=== PATIENT | male | born 1950 | race Caucasian/White ===

== ENCOUNTER 2018-04-10 14:53 | Inpatient (IN) ==
[2018-04-10 16:15] LABS: Hematocrit 38.4 % (42.0-52.0); Hemoglobin 12.9 gm/dL (13.5-18.0); Mean Cell Volume 92.3 fl (78-100); Mean Corpuscular Hgb Conc 33.6 g/dl (32-36); Mean Platelet Volume 9.4 fl (8-11.3); Neutrophil # 10.1 K/mm3 (1.3-6.0); Neutrophil % 72.4 % (42-75.0); Platelet Count 372 K/mm3 (150-450); Red Blood Count 4.16 M/mm3 (4.7-6.0); Red Cell Distribution Width 14.8 % (11.5-14.0); White Blood Count 13.9 K/mm3 (4.0-10.5)
[2018-04-10 16:55] LABS: ALT 15 U/L (19-67); AST 23 U/L (0-48); Alkaline Phosphatase * 116 U/L (50-170); Anion Gap 12.9 mmol/L (6.8-13.8); BUN/Creatinine Ratio 14.6 (9.0-21.6); Bilirubin, Total 0.6 mg/dL (0.0-1.1); Blood Urea Nitrogen 14 mg/dL (6-23); Ca. Corrected For Albumin 9.7 mg/dL (8.4-10.2); Calcium * 9.2 mg/dL (7.9-10.9); Carbon Dioxide 31.6 mmol/L (24-32.6); Chloride 98 mmol/L (97-106); Glucose * 108 mg/dL (70-110); Potassium 3.5 mmol/L (3.4-4.6); Sodium 139 mmol/L (132-142); Total Protein 7.4 gm/dL (6.2-8.2)
[2018-04-10] MEDS ORDERED: PIPERACILLIN SODIUM/TAZOBACTAM 3.375 GM in DEXTROSE 5 % IN WATER 100 ML IV ONE ×2 (17:25)
[2018-04-10] MEDS ORDERED: NORMAL SALINE 1,000 ML IV ONE (17:25)
[2018-04-10] MEDS ORDERED: VANCOMYCIN HCL 1 GM in DEXTROSE 5 % IN WATER 250 ML IV ONE ×2 (17:32)
--- NOTE | 2018-04-10 17:40 | ERNOTE ---
Integumentary HPI - Narrative Date of Service: 04/10/18 - General Time Seen by Provider: 04/10/18 15:56 Source: patient Exam Limitations: no limitations - Immun/Allergies/Home Medications Immunizations: IMMUNIZATION HX Immunizations Up to Date Yes History of Influenza Vaccine Yes Allergies/Adverse Reactions: Allergies Allergy/AdvReac Type Severity Reaction Status Date / Time codeine Allergy Intermediate Verified 04/10/18 15:52 Home Medications: HOME MEDICATIONS Allopurinol [Zyloprim] 300 mg PO DAILY 04/08/18 [Last Taken Unknown] Amitriptyline HCl [Elavil] 50 mg PO QPM 04/08/18 [Last Taken Unknown] Escitalopram Oxalate [Lexapro] 10 mg PO DAILY 04/08/18 [Last Taken Unknown] Ferrous Gluconate 325 mg PO QAM 04/08/18 [Last Taken Unknown] Furosemide [Lasix] 80 mg PO QAM 04/08/18 [Last Taken Unknown] Gabapentin 300 mg PO TID 04/08/18 [Last Taken Unknown] HYDROcodone/ACETAMINOPHEN [Hydrocodon-Acetaminophen 5-325] 1 ea PO TID 04/08/18 [Last Taken Unknown] Methocarbamol [Robaxin] 1.5 mg PO QPM 04/08/18 [Last Taken Unknown] Metoprolol Tartrate [Lopressor] 50 mg PO QAM 04/08/18 [Last Taken Unknown] Potassium Chloride [K-Tab ER] 10 meq PO QAM 04/08/18 [Last Taken Unknown] Pramipexole Di-HCl [Pramipexole Dihydrochloride] 0.5 mg PO QAM 04/08/18 [Last Taken Unknown] Pramipexole Di-HCl [Pramipexole ER] 1.5 mg PO QAM 04/08/18 [Last Taken Unknown] Pregabalin [Lyrica] 150 mg PO TID 04/08/18 [Last Taken Unknown] Rivaroxaban [Xarelto] 20 mg PO QPM 04/08/18 [Last Taken Unknown] Simvastatin 40 mg PO QPM 04/08/18 [Last Taken Unknown] rOPINIRole HCL [Requip] 4 mg PO QPM 04/08/18 [Last Taken Unknown] - Pain Pain Score: 6 - History of Present Illness Narrative: The patient is a 68 year old male who presents for left foot and leg redness which has been present for 2 days. There are associated symptoms of left volar foot ulcer. The patient reports pain to left foot and lower extremity, 6/10. There are no alleviating factors. There are no aggravating factors. Previous treatments have included: currently taking Keflex without improvement. The past medical history includes: HTN, AFib, non-Hodgkins Lymphoma and peripheral vascular disease. The social history is negative. The patient has had no ill contacts. Patient states he developed a "blister" lesion to left volar foot on , patient states area opened and began draining bloody brown discharge on Saturday. Patient states he saw on Saturday and began Keflex. Patient states yesterday he develop redness to left dorsal foot with progression to left lower extremity today. Patient states on Saturday he also developed having fever. Review of Systems - Review of Systems Constitutional: Present: fever, fatigue EYE: Present: no symptoms reported ENT: Present: no symptoms reported. Absent: ear pain, nasal drainage, sore throat Respiratory: Present: no symptoms reported. Absent: shortness of breath, cough Cardiology: Present: no symptoms reported. Absent: chest pain Gastrointestinal/Abdominal: Present: eating less. Absent: nausea, vomiting, diarrhea Genitourinary: Present: no symptoms reported. Absent: dysuria Musculoskeletal: Present: joint pain Skin: Present: change in color Neurological: Present: no symptoms reported Endocrine: Present: no symptoms reported Hematologic/Lymphatic: Present: no symptoms reported Psych: Present: no symptoms reported All Other Systems: All systems neg except as marked Medical History (Last Reviewed 04/10/18 @ 17:45 by DEEPTI Soliman) Atrial fibrillation History of recent chemotherapy History of smoking Hypercholesteremia Hypertension Non-Hodgkin lymphoma Pacemaker Polyneuropathy Swelling of both lower extremities Tarsal tunnel syndrome, bilateral Surgical History: Surgical History (Last Reviewed 04/10/18 @ 17:45 by DEEPTI Soliman) Amputated toe of right foot Amputation of little toe History of amputation of left great toe History of amputation of lesser toe of left foot History of back surgery History of bilateral carpal tunnel release History of heart bypass surgery Family History: Family History (Last Reviewed 04/10/18 @ 17:45 by DEEPTI Soliman) Father Sepsis Heart disease Mother Lupus Heart disease Other Parents Social History: Preferred Language Frisian Smoking Status Never smoker Alcohol Use none Drug Use none No Social History Section defined Physical Exam - Physical Exam General Appearance: Present: wd/wn, alert, no apparent distress Head Exam: Present: normal inspection Eye Exam: Normal inspection: bilateral Neck: Present: normal inspection Respiratory: Present: no respiratory distress, normal breath sounds, no accessory muscle use, lungs clear Cardiovascular/Chest: Present: regular rate, rhythm, systolic murmur Peripheral Pulses: N=norm/S=strong/W=weak/B=bound/A=absent: Dorsalis-pedis (L): Normal Extremity Exam: Present: pedal edema, extremity edema - 1+ pitting to left lower extremity, other - erythema to dorsal left foot with circumferential erythema to left lower extremity, 2cm x 1cm ulceration left volar foot Neurological Exam: Present: alert, oriented, normal mood/affect Skin Exam: Present: normal color, warm/dry Progress - Date and Time Seen: Date and Time: 04/10/18 17:27 Discussed care and treatment plan with , will consult. 04/10/18 17:40 Discussed case with , will initiate Vanco and Zosyn. Blood cultures pending. Will admit for cellulitis, failed outpt treatment and left foot ulceration. - Results and Orders Patient's Lab Results:: I have reviewed the patient's lab results. - Vital Signs Patient's Vital Signs:: I have reviewed the patient's vital signs. Vital Signs: Vital Signs 04/10/18 15:49 Temperature 36.4 C Pulse Rate 82 Respiratory Rate 17 Blood Pressure 119/72 O2 Sat by Pulse Oximetry 99 - X-Ray X-Ray #1 X-Ray: foot Interpretation: Reviewed by me X-ray Comments: Previous amputation of toes, no acute osseous abnormality. Small amount of cutaneous air related to overlying ulcer. Reviewed with . - Progress/Reassessment Chief Complaint: Cellulitis Departure Clinical Impression: Failure of outpatient treatment Cellulitis Qualifiers: Site of cellulitis: extremity Site of cellulitis of extremity: lower extremity Laterality: left Qualified Code(s): L03.116 - Cellulitis of left lower limb Foot ulcer, left Qualifiers: Non-pressure ulcer stage: unspecified non-pressure ulcer stage Qualified Code(s): L97.529 - Non-pressure chronic ulcer of other part of left foot with unspecified severity - Departure Disposition: Still a patient Condition: Fair
--- NOTE | 2018-04-10 21:02 | HP ---
Chief Complaint - Chief Complaint Date of Service: 04/10/18 Time of Service: 21:01 Chief Complaint: ulcer, cellulitis of left forefoot History of Present Illness: 68-year-old male presented to the ER this evening with worsening infection of his left forefoot. Patient has history of peripheral vascular disease leading to amputation of his 5 digits on his left foot prior to this infection. Patient noticed may be a week to 10 days ago that there was a blister/wound lesion on his plantar aspect of his left forefoot. He tried treating it himself but after a few days with no improvement and worsening drainage decided to go to the wound clinic here at [address] [place] [address]. He was being seen by Dr. Duque for this issue who saw him 2 days ago. She explored the ulcer with debridement and send the patient home on Keflex. Today return to the hospital with worsening cellulitis of his left forefoot that initially it started at the plantar aspect around his wound but has now tracked up to just above the ankle circumferentially was left lower extremity. He states that he was having fevers at home but has had none here up to date. He states that the drainage worsened over the last 2 days and the pain also increased. His left lower extremity is significantly more swollen than his right. Peripheral pulses are palpable but weak with delayed cap refill in both feet. X-rays obtained of his left lower extremity were fairly unimpressive, no obvious signs of periosteal reaction seen but due to such a high ESR osteomyelitis is definitely a possibility. Waiting for official read to come back on the x-ray. He was started on vancomycin and Zosyn in the ER, blood cultures pending. Patient has a history of A. fib, non-Hodgkin's lymphoma with recent chemotherapy, hypertension, polyneuropathy, history of lead exposure, peripheral vascular disease, and history of 5 digit left foot amputation. Medical History (Last Reviewed 04/10/18 @ 19:48 by Andria Fontanez RN) Atrial fibrillation History of recent chemotherapy History of smoking Hypercholesteremia Hypertension Non-Hodgkin lymphoma Pacemaker Polyneuropathy Swelling of both lower extremities Tarsal tunnel syndrome, bilateral Surgical History: Surgical History (Last Reviewed 04/10/18 @ 19:48 by Andria Fontanez RN) Amputated toe of right foot Amputation of little toe History of amputation of left great toe History of amputation of lesser toe of left foot History of back surgery History of bilateral carpal tunnel release History of heart bypass surgery Family History: Family History (Last Reviewed 04/10/18 @ 19:48 by Andria Fontanez RN) Father Heart disease Sepsis Mother Heart disease Lupus Other Parents Social History: Patient Lives/Resources With Spouse Utilized Occupation Net Programmer Preferred Language Tajik Do you have any orthodox or Yes: [employer] of [place] cultural preference? Smoking Status Former smoker Have you smoked in the past 12 Yes months Do you dip or chew tobacco No Alcohol Use none Drug Use none No Social History Section defined Review Of Systems (GEN) - Review of Systems Generalized/Overall Review: Present: Fever. Absent: Chills, Fatigue EENTM: Present: No Symptoms Reported Respiratory: Present: No Symptoms Reported Cardiac: Absent: Chest Pain, Edema, Palpitations Abdominal: Absent: Nausea, Vomiting Genitourinary: Present: No Symptoms Reported Musculoskeletal: Present: Muscle Pain, Other - Left foot pain with wound and drainage Skin: Present: Rash - Redness warmth circumferentially to just above the ankle left lower extremity, Change in Color, Change in hair/nails - Minimal hair on forefeet Immunizations: IMMUNIZATION HX Immunizations Up to Date Yes History of Influenza Vaccine Yes Allergies/Adverse Reactions: Allergies Allergy/AdvReac Type Severity Reaction Status Date / Time codeine Allergy Intermediate Verified 04/10/18 15:52 Home Medications: HOME MEDICATIONS Allopurinol [Zyloprim] 300 mg PO DAILY 04/08/18 [Last Taken Unknown] Amitriptyline HCl [Elavil] 50 mg PO QPM 04/08/18 [Last Taken Unknown] Escitalopram Oxalate [Lexapro] 10 mg PO DAILY 04/08/18 [Last Taken Unknown] Ferrous Gluconate 325 mg PO QAM 04/08/18 [Last Taken Unknown] Furosemide [Lasix] 80 mg PO QAM 04/08/18 [Last Taken Unknown] Gabapentin 300 mg PO TID 04/08/18 [Last Taken Unknown] HYDROcodone/ACETAMINOPHEN [Hydrocodon-Acetaminophen 5-325] 1 ea PO TID 04/08/18 [Last Taken Unknown] Methocarbamol [Robaxin] 1.5 mg PO QPM 04/08/18 [Last Taken Unknown] Metoprolol Tartrate [Lopressor] 50 mg PO QAM 04/08/18 [Last Taken Unknown] Potassium Chloride [K-Tab ER] 10 meq PO QAM 04/08/18 [Last Taken Unknown] Pramipexole Di-HCl [Pramipexole Dihydrochloride] 0.5 mg PO QAM 04/08/18 [Last Taken Unknown] Pramipexole Di-HCl [Pramipexole ER] 1.5 mg PO QAM 04/08/18 [Last Taken Unknown] Pregabalin [Lyrica] 150 mg PO TID 04/08/18 [Last Taken Unknown] Rivaroxaban [Xarelto] 20 mg PO QPM 04/08/18 [Last Taken Unknown] Simvastatin 40 mg PO QPM 04/08/18 [Last Taken Unknown] rOPINIRole HCL [Requip] 4 mg PO QPM 04/08/18 [Last Taken Unknown] Exam - Exam Vital Signs: Vital Signs - Last Taken Temp 37.6 C 04/10/18 18:54 Pulse 79 04/10/18 18:54 Resp 18 04/10/18 18:54 BP 118/67 04/10/18 18:54 Pulse Ox 98 04/10/18 18:54 Constitutional: Present: Alert, Oriented x3, Cooperative Neck: Present: non-tender, full range of motion Respiratory: Present: chest non-tender, lungs clear, normal breath sounds Cardiovascular/Chest: Present: regular rate, rhythm, no murmur Peripheral Pulses: dorsalis-pedis (R): 1+, dorsalis-pedis (L): 1+ Abdomen: Present: Normal bowel sounds, soft, nontender /Rectal: Present: Exam deferred Extremity: Present: lower extremity edema - Left lower extremity mid wagner, leg pain - Left lower extremity, slow capillary refill - Bilateral lower extremities Skin Exam: Present: skin rash - Erythematous, cellulitic rash left lower extremity. Roughly 2 x 2 ulcer under the third metatarsal left forefoot draining purulent material- currently dressed Appearance: Present: appropriate appearance, appropriate insight Eye contact: Present: cooperative, good eye contact Diagnostic Studies: Abnormal Lab Results 04/10/18 04/10/18 04/10/18 Range/Units 16:05 16:05 16:05 WBC 13.9 H (4.0-10.5) K/mm3 RBC 4.16 L (4.7-6.0) M/mm3 Hgb 12.9 L (13.5-18.0) gm/dL Hct 38.4 L (42.0-52.0) % RDW 14.8 H (11.5-14.0) % Immature Gran % (Auto) 0.60 H (0.001-0.429) % Immature Gran # (Auto) 0.09 H (0.000-0.0310) K/mm3 Lymphocytes % 16.1 L (20-51) % Monocytes % 9.1 H (0.0-9) % Neutrophils # 10.1 H (1.3-6.0) K/mm3 Monocytes # 1.3 H (0.0-1.0) k/mm3 ESR (0-10) mm/hr Lactic Acid, Venous 3.0 H* (0.4-2.0) mmol/L ALT 15 L (19-67) U/L Albumin 3.0 L (3.4-5.0) gm/dl 04/10/18 Range/Units 16:05 WBC (4.0-10.5) K/mm3 RBC (4.7-6.0) M/mm3 Hgb (13.5-18.0) gm/dL Hct (42.0-52.0) % RDW (11.5-14.0) % Immature Gran % (Auto) (0.001-0.429) % Immature Gran # (Auto) (0.000-0.0310) K/mm3 Lymphocytes % (20-51) % Monocytes % (0.0-9) % Neutrophils # (1.3-6.0) K/mm3 Monocytes # (0.0-1.0) k/mm3 ESR 110 H (0-10) mm/hr Lactic Acid, Venous (0.4-2.0) mmol/L ALT (19-67) U/L Albumin (3.4-5.0) gm/dl Laboratory Results WBC 13.9 K/mm3 (4.0-10.5) H 04/10/18 16:05 RBC 4.16 M/mm3 (4.7-6.0) L 04/10/18 16:05 Hgb 12.9 gm/dL (13.5-18.0) L 04/10/18 16:05 Hct 38.4 % (42.0-52.0) L 04/10/18 16:05 MCV 92.3 fl (78-100) 04/10/18 16:05 MCH 31.0 pg (27-31) 04/10/18 16:05 MCHC 33.6 g/dl (32-36) 04/10/18 16:05 RDW 14.8 % (11.5-14.0) H 04/10/18 16:05 Plt Count 372 K/mm3 (150-450) 04/10/18 16:05 MPV 9.4 fl (8-11.3) 04/10/18 16:05 Immature Gran % (Auto) 0.60 % (0.001-0.429) H 04/10/18 16:05 Immature Gran # (Auto) 0.09 K/mm3 (0.000-0.0310) H 04/10/18 16:05 Neutrophils % 72.4 % (42-75.0) 04/10/18 16:05 Lymphocytes % 16.1 % (20-51) L 04/10/18 16:05 Monocytes % 9.1 % (0.0-9) H 04/10/18 16:05 Eosinophils % 1.4 % (0.0-3.0) 04/10/18 16:05 Basophils % 0.4 % (0.0-1.0) 04/10/18 16:05 Nucleated RBC % 0.0 k/mm3 (0-1) 04/10/18 16:05 Neutrophils # 10.1 K/mm3 (1.3-6.0) H 04/10/18 16:05 Lymphocytes # 2.25 k/mm3 (1.5-3.5) 04/10/18 16:05 Monocytes # 1.3 k/mm3 (0.0-1.0) H 04/10/18 16:05 Eosinophils # 0.2 k/mm3 (0.0-0.7) 04/10/18 16:05 Absolute Basophils 0.1 k/mm3 (0.0-0.1) 04/10/18 16:05 ESR 110 mm/hr (0-10) H 04/10/18 16:05 Sodium 139 mmol/L (132-142) 04/10/18 16:05 Plasma Sodium 139 mmol/L (130-142) 04/10/18 16:05 Potassium 3.5 mmol/L (3.4-4.6) 04/10/18 16:05 Chloride 98 mmol/L (97-106) 04/10/18 16:05 Carbon Dioxide 31.6 mmol/L (24-32.6) 04/10/18 16:05 Anion Gap 12.9 mmol/L (6.8-13.8) 04/10/18 16:05 BUN 14 mg/dL (6-23) 04/10/18 16:05 Creatinine 0.96 mg/dL (0.4-1.4) 04/10/18 16:05 Est GFR (Non-Af Amer) 83 mL/min (60-130) 04/10/18 16:05 BUN/Creatinine Ratio 14.6 (9.0-21.6) 04/10/18 16:05 Random Glucose 108 mg/dL (70-110) 04/10/18 16:05 Lactic Acid, Venous 1.5 mmol/L (0.4-2.0) 04/10/18 19:36 Calcium 9.2 mg/dL (7.9-10.9) 04/10/18 16:05 Calcium Adj for Albumin 9.7 mg/dL (8.4-10.2) 04/10/18 16:05 Total Bilirubin 0.6 mg/dL (0.0-1.1) 04/10/18 16:05 AST 23 U/L (0-48) 04/10/18 16:05 ALT 15 U/L (19-67) L 04/10/18 16:05 Alkaline Phosphatase 116 U/L (50-170) 04/10/18 16:05 C-Reactive Prot, Quant Less than 0.2 mg/dL (0.0-0.9) 04/10/18 16:05 Total Protein 7.4 gm/dL (6.2-8.2) 04/10/18 16:05 Albumin 3.0 gm/dl (3.4-5.0) L 04/10/18 16:05 Assessment/Plan - Narrative Narrative: Patient admitted under inpatient due to failed outpatient oral antibiotics as well as worsening cellulitic infection. Concern for osteomyelitis due to elevated ESR and rapidly spreading infection with access to periosteum underneath the ulceration. Patient started on vancomycin and Zosyn. Vank trough ordered to be drawn 1 hour prior to the fourth dose. Will repeat CBC in a.m. Dr. Duque has been consulted, patient will be made n.p.o. after midnight in case Dr. Duque wants to perform any surgical procedures. Blood cultures pending. MRSA screening pending. Normal saline given at 125/h. Chronic medications reconciled and ordered. We will monitor vitals. - Assessment/Plan (1) Cellulitis Problem: Acute Qualifiers: Site of cellulitis: extremity Site of cellulitis of extremity: lower extremity Laterality: left Qualified Code(s): L03.116 - Cellulitis of left lower limb (2) Foot ulcer, left Problem: Acute Qualifiers: Non-pressure ulcer stage: unspecified non-pressure ulcer stage Qualified Code(s): L97.529 - Non-pressure chronic ulcer of other part of left foot with unspecified severity (3) Failure of outpatient treatment Problem: Acute (4) Hypertension Problem: Chronic (5) History of non-Hodgkin's lymphoma Problem: Chronic (6) Peripheral vascular disease Problem: Chronic
[2018-04-10] MEDS: SIMVASTATIN 40 MG TABLET PO SCH (21:51)
[2018-04-10] MEDS: rOPINIRole HCL 1 MG TABLET PO SCH (21:52)
[2018-04-10] MEDS: PREGABALIN 75 MG CAPSULE PO SCH (21:52)
[2018-04-10] MEDS: GABAPENTIN 300 MG CAPSULE PO SCH (21:52)
[2018-04-10] MEDS: AMITRIPTYLINE HCL 50 MG TABLET PO SCH (21:53)
[2018-04-10] MEDS: NORMAL SALINE 1,000 ML IV SCH (22:34)
[2018-04-11] MEDS: PIPERACILLIN SODIUM/TAZOBACTAM 3.375 GM in DEXTROSE 5 % IN WATER 100 ML IV SCH ×6 (01:31→16:25)
[2018-04-11] MEDS ORDERED: VANCOMYCIN HCL 1.25 GM in DEXTROSE 5 % IN WATER 250 ML IV SCH ×2 (05:30)
[2018-04-11 06:54] LABS: Hematocrit 32.8 % (42.0-52.0); Hemoglobin 10.8 gm/dL (13.5-18.0); Mean Cell Volume 92.7 fl (78-100); Mean Corpuscular Hemoglobin 30.5 pg (27-31); Mean Corpuscular Hgb Conc 32.9 g/dl (32-36); Mean Platelet Volume 9.4 fl (8-11.3); Neutrophil # 7.8 K/mm3 (1.3-6.0); Neutrophil % 67.4 % (42-75.0); Platelet Count 365 K/mm3 (150-450); Red Blood Count 3.54 M/mm3 (4.7-6.0); Red Cell Distribution Width 14.9 % (11.5-14.0); White Blood Count 11.5 K/mm3 (4.0-10.5)
[2018-04-11] MEDS: VANCOMYCIN HCL 1.25 GM in DEXTROSE 5 % IN WATER 250 ML IV SCH ×4 (07:04→17:40)
[2018-04-11] MEDS: GABAPENTIN 300 MG CAPSULE PO SCH ×3 (08:56→16:25)
[2018-04-11] MEDS: POTASSIUM CHLORIDE 10 MEQ TABLET.SA PO SCH (08:56)
[2018-04-11] MEDS: METOPROLOL TARTRATE 50 MG TABLET PO SCH (08:56)
[2018-04-11] MEDS: ESCITALOPRAM OXALATE 10 MG TAB PO SCH (08:56)
[2018-04-11] MEDS: ALLOPURINOL 300 MG TABLET PO SCH (08:57)
[2018-04-11] MEDS: PRAMIPEXOLE DI-HCL 0.5 MG TABLET PO SCH (08:57)
[2018-04-11] MEDS: PREGABALIN 75 MG CAPSULE PO SCH ×3 (09:06→16:29)
[2018-04-11] MEDS: NORMAL SALINE 1,000 ML IV PRN ×2 (11:01→19:09)
--- NOTE | 2018-04-11 11:14 | PN ---
Subjective - Date and Time Seen Date: 04/11/18 Time: 11:13 Subjective Narrative: Patient did well overnight with no acute complications. He denies fevers, chills, nausea, vomiting. His vital signs were stable overnight. Patient states that his pain is well controlled, states that it has improved since starting antibiotics. Patient states the redness has improved as well, still has some swelling to the foot. Patient states he is hungry. Objective - Review of Systems Generalized/Overall Review: Reports: No Symptoms Reported EENTM: Reports: No Symptoms Reported Respiratory: Denies: Cough, Shortness of Breath Cardiac: Denies: Chest Pain, Edema, Palpitations Abdominal: Denies: Nausea, Vomiting Genitourinary Symptoms: Reports: No Symptoms Reported Musculoskeletal Complaints: Reports: Muscle Pain - Left lower extremity, improving Neurological: Reports: No Symptoms Reported Skin: Reports: Change in Color - Lower extremity cellulitis, improving with antibiotics Endocrine: Reports: No Symptoms Reported - Vitals Vitals: Last Vital Signs Temp 37.2 C 04/11/18 07:00 Pulse 82 04/11/18 08:56 Resp 16 04/11/18 07:00 BP 137/76 04/11/18 08:56 Pulse Ox 96 04/11/18 07:00 - Abnormal Lab Findings Abnormal Lab Findings: Abnormal Lab Results 04/10/18 04/10/18 04/10/18 Range/Units 16:05 16:05 16:05 WBC 13.9 H (4.0-10.5) K/mm3 RBC 4.16 L (4.7-6.0) M/mm3 Hgb 12.9 L (13.5-18.0) gm/dL Hct 38.4 L (42.0-52.0) % RDW 14.8 H (11.5-14.0) % Immature Gran % (Auto) 0.60 H (0.001-0.429) % Immature Gran # (Auto) 0.09 H (0.000-0.0310) K/mm3 Lymphocytes % 16.1 L (20-51) % Monocytes % 9.1 H (0.0-9) % Neutrophils # 10.1 H (1.3-6.0) K/mm3 Monocytes # 1.3 H (0.0-1.0) k/mm3 ESR (0-10) mm/hr Lactic Acid, Venous 3.0 H* (0.4-2.0) mmol/L ALT 15 L (19-67) U/L Albumin 3.0 L (3.4-5.0) gm/dl 04/10/18 04/11/18 Range/Units 16:05 06:47 WBC 11.5 H (4.0-10.5) K/mm3 RBC 3.54 L (4.7-6.0) M/mm3 Hgb 10.8 L (13.5-18.0) gm/dL Hct 32.8 L (42.0-52.0) % RDW 14.9 H (11.5-14.0) % Immature Gran % (Auto) 0.50 H (0.001-0.429) % Immature Gran # (Auto) 0.06 H (0.000-0.0310) K/mm3 Lymphocytes % (20-51) % Monocytes % 9.1 H (0.0-9) % Neutrophils # 7.8 H (1.3-6.0) K/mm3 Monocytes # 1.1 H (0.0-1.0) k/mm3 ESR 110 H (0-10) mm/hr Lactic Acid, Venous (0.4-2.0) mmol/L ALT (19-67) U/L Albumin (3.4-5.0) gm/dl - Exam Constitutional: Present: Alert, Oriented x3, Cooperative, Well developed Neck: Present: non-tender, supple Respiratory: Present: lungs clear, normal breath sounds Cardiovascular/Chest: Present: normal peripheral pulses, irregularly irregular Abdomen: Present: Normal bowel sounds, soft, nontender Extremity: Present: lower extremity edema - Left lower extremity, due to infection, slow capillary refill - Bilateral feet, other Skin Exam: Present: skin rash - Cellulitic infection left lower extremity to just above the ankle, circumferential, warm to touch Neurologic: Present: no motor/sensory deficits Appearance: Present: appropriate appearance, appropriate insight Eye contact: Present: cooperative, good eye contact Thoughts: Present: normal thought pattern, normal mood /affect Assessment/Plan Plan Narrative: Patient admitted under inpatient due to failed outpatient oral antibiotics as well as worsening cellulitic infection. 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 Patient started on vancomycin, will stop Zosyn due to cultures growing out MRSA. Patient to be placed on contact precautions. Vank trough ordered to be drawn 1 hour prior to the fourth dose. Will repeat CBC in a.m. Dr. Duque has been consulted, patient will be made n.p.o. after midnight of the so patient can be taken back with Dr. Duque for resection of all 5 metatarsal heads. Will stop the normal saline IV, allow patient to eat today. Will start patient on Lovenox, to be stopped on the , currently holding Xarelto. Chronic medications reconciled and ordered. We will monitor vitals. - Problems/Diagnosis (1) Osteomyelitis of foot, left, acute Problem: Acute (2) Cellulitis Problem: Acute Qualifiers: Site of cellulitis: extremity Site of cellulitis of extremity: lower extremity Laterality: left Qualified Code(s): L03.116 - Cellulitis of left lower limb (3) Foot ulcer, left Problem: Acute Qualifiers: Non-pressure ulcer stage: unspecified non-pressure ulcer stage Qualified Code(s): L97.529 - Non-pressure chronic ulcer of other part of left foot with unspecified severity (4) Failure of outpatient treatment Problem: Acute (5) Hypertension Problem: Chronic (6) History of non-Hodgkin's lymphoma Problem: Chronic (7) Peripheral vascular disease Problem: Chronic (8) A-fib Problem: Acute
--- NOTE | 2018-04-11 11:23 | CONS ---
- Reason for consultation (1) Cellulitis Date of Service: 04/11/18 (2) Foot ulcer, left Date of Service: 04/11/18 HPI - General Date of Service: 04/11/18 Narrative: Pt evaluated in bedside chair resting. Was admitted last evening with worsening redness, swelling, and pain about his left foot/lower leg, failing outpatient oral ABX treatment. He was first seen by me in the wound center on Saturday this week for evaluation following a 1.5 week duration of an ulceration that developed after a blister had popped on this foot. He had tried treating at home, however noticed he was developing worsening of the ulceration with redness and increased drainage. 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 He had mild erythema about the distal aspect of the foot with some swelling and tenderness into the lower leg. A swab culture was obtained on that visit, xrays taken with no osseous destruction to indicate osteomyelitis, wound was debrided and dressed, and he was placed on oral Keflex with instructions to seek medical attention immediately should his symptoms not improve or worsen. He presented to the ED yesterday evening with worsening symptoms as above and was admitted. I was consulted for surgical evaluation. He is having a bone scan done today. Culture results returned showing MRSA. States he is feeling better today after just a couple doses of IV ABX. Still with some tenderness to the lower leg. Source: patient - History of Present Illness Timing/Duration: getting worse Allergies/Adverse Reactions: Allergies codeine Allergy (Intermediate, Verified 04/10/18 15:52) Home Medications: Home Medications Medication Instructions Recorded Last Taken Allopurinol [Zyloprim] 300 mg PO DAILY 04/08/18 Unknown Amitriptyline HCl [Elavil] 50 mg PO QPM 04/08/18 Unknown Escitalopram Oxalate [Lexapro] 10 mg PO DAILY 04/08/18 Unknown Ferrous Gluconate 325 mg PO QAM 04/08/18 Unknown Furosemide [Lasix] 80 mg PO QAM 04/08/18 Unknown Gabapentin 300 mg PO TID 04/08/18 Unknown HYDROcodone/ACETAMINOPHEN 1 ea PO TID 04/08/18 Unknown [Hydrocodon-Acetaminophen 5-325] Methocarbamol [Robaxin] 1.5 mg PO QPM 04/08/18 Unknown Metoprolol Tartrate [Lopressor] 50 mg PO QAM 04/08/18 Unknown Potassium Chloride [K-Tab ER] 10 meq PO QAM 04/08/18 Unknown Pramipexole Di-HCl [Pramipexole 0.5 mg PO QAM 04/08/18 Unknown Dihydrochloride] Pramipexole Di-HCl [Pramipexole ER] 1.5 mg PO QAM 04/08/18 Unknown Pregabalin [Lyrica] 150 mg PO TID 04/08/18 Unknown Rivaroxaban [Xarelto] 20 mg PO QPM 04/08/18 Unknown Simvastatin 40 mg PO QPM 04/08/18 Unknown rOPINIRole HCL [Requip] 4 mg PO QPM 04/08/18 Unknown Acyclovir [Zovirax] 400 mg PO DAILY 04/11/18 Unknown Folic Acid 0.8 mg PO DAILY 04/11/18 Unknown Ginkgo Biloba 60 mg PO DAILY 04/11/18 Unknown Multivit-Min/Folic/Vit K/Lycop 1 ea PO DAILY 04/11/18 Unknown [Men's Multivitamin Tablet] Medications - Medications Current Medications: Current Medications Allopurinol (Zyloprim) 300 mg PO DAILY [facility] Stop: 05/11/18 09:01 Last Admin: 04/11/18 08:57 Dose: 300 mg Documented by: Amitriptyline HCl (Elavil) 50 mg PO QPM@2100 [facility] Stop: 05/10/18 21:01 Last Admin: 04/10/18 21:53 Dose: Not Given Documented by: Escitalopram Oxalate (Lexapro) 10 mg PO DAILY [facility] Stop: 05/11/18 09:01 Last Admin: 04/11/18 08:56 Dose: 10 mg Documented by: Gabapentin (Neurontin) 300 mg PO TID [facility] Stop: 05/10/18 21:01 Last Admin: 04/11/18 08:56 Dose: 300 mg Documented by: Piperacillin Sod/Tazobactam (Sod 3.375 gm/ Dextrose/Water) 100 mls @ 25 mls/hr IV Q8H [facility]; Protocol Stop: 05/11/18 01:01 Last Admin: 04/11/18 08:57 Dose: 25 mls/hr Documented by: Vancomycin HCl 1.25 gm/ (Dextrose/Water) 250 mls @ 140 mls/hr IV Q12H [facility]; Protocol Stop: 05/11/18 06:31 Last Admin: 04/11/18 07:04 Dose: 140 mls/hr Documented by: Sodium Chloride (Sodium Chloride 0.9%) 1,000 mls @ 125 mls/hr IV .Q8H PRN PRN Reason: HYDRATION Stop: 05/10/18 22:16 Last Admin: 04/11/18 11:01 Dose: 125 mls/hr Documented by: Metoprolol Tartrate (Lopressor) 50 mg PO [facility] Stop: 05/11/18 09:01 Last Admin: 04/11/18 08:56 Dose: 50 mg Documented by: Potassium Chloride (Klor-Con 10) 10 meq PO QAM [facility] Stop: 05/11/18 09:01 Last Admin: 04/11/18 08:56 Dose: 10 meq Documented by: Pramipexole Dihydrochloride (Mirapex) 0.5 mg PO [facility] Stop: 05/11/18 09:01 Last Admin: 04/11/18 08:57 Dose: 0.5 mg Documented by: Pregabalin (Lyrica) 150 mg PO TID [facility] Stop: 05/10/18 21:01 Last Admin: 04/11/18 09:06 Dose: 150 mg Documented by: Ropinirole HCl (Requip) 4 mg PO QPM@2100 [facility] Stop: 05/10/18 21:01 Last Admin: 04/10/18 21:52 Dose: 4 mg Documented by: Simvastatin (Zocor) 40 mg PO QPM [facility] Stop: 05/10/18 21:01 Last Admin: 04/10/18 21:51 Dose: 40 mg Documented by: Review of Systems - Review of Systems Generalized/Overall Review: Absent: Chills, Fatigue Cardiac: Present: Edema Abdominal: Absent: Nausea, Vomiting, Diarrhea Musculoskeletal: Present: Other - left lower leg pain Neurological: Present: Numbness Skin: Present: Other - ulceration left foot Physical Examination - Exam Narrative: Bone scan reviewed, agree with report as follows: Three-phase positive abnormal bone scan of the left foot with likely osteomyelitis suggested at the second metatarsal head and maybe secondarily involving the first metatarsal head. Vital Signs: Vital Signs - Last Taken Temp 37.2 C 04/11/18 07:00 Pulse 82 04/11/18 08:56 Resp 16 04/11/18 07:00 BP 137/76 04/11/18 08:56 Pulse Ox 96 04/11/18 07:00 O2 Oxygen Delivery Method Room Air Constitutional: Present: Alert, Oriented x3, Cooperative Peripheral Pulses: dorsalis-pedis (L): 1+ - Likely secondary to edema in the extremity Extremity: Present: lower extremity edema, leg pain - left lower leg, other - amputation of all 5 toes left foot Skin Exam: Present: other - There is one ulceration present to the distal plantar surface of the left foot sub area of third metatarsal head that measures 1.5 x 0.7 x 4.5 cm. There is no undermining; however, the wound does probe to the dorsum of the foot giving the ulceration its significant depth. Loss of tissue is to full thickness with exposure of subcutaneous fat layer. The wound bed is covered with significant amount of red granulation tissue with surrounding tissue being erythematous. Erythma extends about the amputation stump proximally past the ankle into the lower leg. There is a moderate amount of serous drainage noted with no malodor present. There is no exposed tendon, however bone can be palpated. Neurologic: Present: sensory deficit Appearance: Present: appropriate appearance Eye contact: Present: cooperative - Results and Findings: Lab/Microbiology results last 24 hrs: Abnormal/Pending Laboratory Last 24 HRS 04/11/18 04/10/18 04/10/18 06:47 16:05 16:05 WBC 11.5 H RBC 3.54 L Hgb 10.8 L Hct 32.8 L RDW 14.9 H Immature Gran % (Auto) 0.50 H Immature Gran # (Auto) 0.06 H Lymphocytes % Monocytes % 9.1 H Neutrophils # 7.8 H Monocytes # 1.1 H ESR 110 H Lactic Acid, Venous 3.0 H* ALT Albumin 04/10/18 04/10/18 16:05 16:05 WBC 13.9 H RBC 4.16 L Hgb 12.9 L Hct 38.4 L RDW 14.8 H Immature Gran % (Auto) 0.60 H Immature Gran # (Auto) 0.09 H Lymphocytes % 16.1 L Monocytes % 9.1 H Neutrophils # 10.1 H Monocytes # 1.3 H ESR Lactic Acid, Venous ALT 15 L Albumin 3.0 L - Assessments/Findings (1) Cellulitis Diagnosis(s): Continue current IV ABX as he seems to be improving. Problem: Acute Qualifiers: Site of cellulitis: extremity Site of cellulitis of extremity: lower extremity Laterality: left Qualified Code(s): L03.116 - Cellulitis of left lower limb (2) Foot ulcer, left Diagnosis(s): Ulceration recently debrided. Does not require repeat debridement at this time. Will begin daily dressings with Aquacel Ag, dry gauze, josemanuel, and JEANNE bandage. Problem: Acute Qualifiers: Non-pressure ulcer stage: unspecified non-pressure ulcer stage Qualified Code(s): L97.529 - Non-pressure chronic ulcer of other part of left foot with unspecified severity (3) Osteomyelitis of foot, left, acute Diagnosis(s): Bone scan reviewed, likely osteomyelitis. Advise removal of infected bone, which may be done with isolated metatarsal head resection of 1st and 2nd metatarsals, however he could develop transfer lesions/ulcerations to adjacent metatarsal heads vs garcia-metatarsal head resection with revision of current amputation stump. Pt would like to proceed with resection of all metatarsal heads, revision of amputation stump, and surgical debridement of ulceration. Discussed risks and benefits of surgery, anesthesia, and post-operative care. No guarantees given or implied. Pt wishes to proceed. Will consent for incision and debridement of ulceration left foot, garcia-metatarsal head resection left foot with revision of amputation stump. This will be scheduled for 04/14/2018. NPO after midnight prior to surgery. May call with any questions/concerns prior to surgery. Problem: Acute
[2018-04-11] MEDS: SIMVASTATIN 40 MG TABLET PO SCH (16:25)
[2018-04-11] MEDS: NORMAL SALINE 1,000 ML IV SCH (16:32)
[2018-04-11] MEDS: rOPINIRole HCL 1 MG TABLET PO SCH (20:46)
[2018-04-11] MEDS: AMITRIPTYLINE HCL 50 MG TABLET PO SCH (20:47)
[2018-04-11] MEDS ORDERED: HEPARIN SOD.,PORCINE 100 UNITS/ML IV PRN (21:24)
[2018-04-11] MEDS: ENOXAPARIN SODIUM 40 MG/0.4 ML SYRG SC SCH (21:33)
[2018-04-12] MEDS: VANCOMYCIN HCL 1.25 GM in DEXTROSE 5 % IN WATER 250 ML IV SCH ×2 (05:46)
[2018-04-12] MEDS ORDERED: VANCOMYCIN HCL LEVEL XX ONE (06:00)
[2018-04-12] MEDS: ALLOPURINOL 300 MG TABLET PO SCH (08:49)
[2018-04-12] MEDS: FOLIC ACID 0.4 MG TABLET PO SCH (08:49)
[2018-04-12] MEDS: PRAMIPEXOLE DI-HCL 0.5 MG TABLET PO SCH ×2 (08:49)
[2018-04-12] MEDS: GABAPENTIN 300 MG CAPSULE PO SCH ×3 (08:49→16:28)
[2018-04-12] MEDS: PREGABALIN 75 MG CAPSULE PO SCH ×3 (08:49→16:27)
[2018-04-12] MEDS: FUROSEMIDE 80 MG TABLET PO SCH (08:50)
[2018-04-12] MEDS: METOPROLOL TARTRATE 50 MG TABLET PO SCH (08:50)
[2018-04-12] MEDS: ESCITALOPRAM OXALATE 10 MG TAB PO SCH (08:50)
[2018-04-12] MEDS: FERROUS SULFATE 325 MG TABLET PO SCH (08:50)
[2018-04-12] MEDS: POTASSIUM CHLORIDE 10 MEQ TABLET.SA PO SCH (08:50)
--- NOTE | 2018-04-12 10:07 | PN ---
Subjective - Date and Time Seen Date: 04/12/18 Time: 10:07 Subjective Narrative: Patient did well overnight, no acute events. Patient vital signs are stable he was afebrile. Patient states that his pain is minimal at this time. He is waiting for his surgical procedure to take place on the with Dr. Duque. He is tolerating p.o. well. Objective - Review of Systems Generalized/Overall Review: Denies: Chills, Fever EENTM: Reports: No Symptoms Reported Respiratory: Denies: Cough, Shortness of Breath Cardiac: Denies: Chest Pain, Palpitations Abdominal: Denies: Nausea, Vomiting Genitourinary Symptoms: Reports: No Symptoms Reported Musculoskeletal Complaints: Reports: Joint Pain - Left lower ankleminimal, Muscle Pain - Left lower extremityaround the infection Neurological: Denies: Headache, Anxiety Skin: Reports: Change in Color - Warmth and redness left lower extremity - Vitals Vitals: Last Vital Signs Temp 36.9 C 04/12/18 09:00 Pulse 80 04/12/18 09:00 Resp 16 04/12/18 09:00 BP 121/63 04/12/18 09:00 Pulse Ox 97 04/12/18 09:00 - Abnormal Lab Findings Abnormal Lab Findings: Abnormal Lab Results 04/12/18 Range/Units 05:05 Vancomycin Trough 8.0 L (10.0-20.0) mcg/mL - Exam Constitutional: Present: Alert, Oriented x3, Cooperative, No distress, Obese Respiratory: Present: chest non-tender, lungs clear, normal breath sounds Cardiovascular/Chest: Present: normal peripheral pulses, no murmur, irregularly irregular Abdomen: Present: Normal bowel sounds, soft, nontender /Rectal: Present: Exam deferred Extremity: Present: lower extremity edema - left lower extremity, leg pain - Minimally tender around infection Skin Exam: Present: other - erythematous, warm to touch over left lower extremity Appearance: Present: appropriate appearance, appropriate insight, neat Eye contact: Present: cooperative, good eye contact Thoughts: Present: normal thought pattern, normal mood /affect Assessment/Plan Plan Narrative: Patient admitted under inpatient due to failed outpatient oral antibiotics as well as worsening cellulitic infection. 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 Patient started on vancomycin; Zosyn s topped due to cultures growing out MRSA. Patient placed on contact precautions. Vank trough came back at a low level, increased dose to 1.5 g every 12 hours. Will repeat CBC in a.m. cellulitis significantly improved, left lower extremity minimally tender. Swelling around infection also improving. Dr. Duque has been consulted, patient will be made n.p.o. after midnight of the so patient can be taken back with Dr. Duque for resection of all 5 metatarsal heads. Will stop the normal saline IV, allow patient to eat today. Will start patient on Lovenox, to be stopped on the , currently holding Xarelto. Chronic medications reconciled and ordered. We will monitor vitals. - Problems/Diagnosis (1) Osteomyelitis of foot, left, acute Problem: Acute (2) Cellulitis Problem: Acute Qualifiers: Site of cellulitis: extremity Site of cellulitis of extremity: lower extremity Laterality: left Qualified Code(s): L03.116 - Cellulitis of left lower limb (3) Foot ulcer, left Problem: Acute Qualifiers: Non-pressure ulcer stage: unspecified non-pressure ulcer stage Qualified Code(s): L97.529 - Non-pressure chronic ulcer of other part of left foot with unspecified severity (4) Failure of outpatient treatment Problem: Acute (5) Hypertension Problem: Chronic (6) History of non-Hodgkin's lymphoma Problem: Chronic (7) Peripheral vascular disease Problem: Chronic (8) A-fib Problem: Acute
--- NOTE | 2018-04-12 12:12 | PN ---
Subjective - Date and Time Seen Date: 04/12/18 Time: 12:04 Subjective Narrative: Pt evaluated sitting in bedside chair. States that his left lower leg pain has improved some since yesterday. Denies any N/V/F/C. Still in agreement with surgery on Saturday to remove infected bone/tissue. No new concerns. Objective - Review of Systems Generalized/Overall Review: Denies: Chills, Fever Respiratory: Denies: Shortness of Breath Cardiac: Reports: Edema Abdominal: Denies: Nausea Neurological: Reports: Numbness Skin: Reports: Other - ulcer left foot - Vitals Vitals: Last Vital Signs Temp 36.9 C 04/12/18 09:00 Pulse 80 04/12/18 09:00 Resp 16 04/12/18 09:00 BP 121/63 04/12/18 09:00 Pulse Ox 97 04/12/18 09:00 - Abnormal Lab Findings Abnormal Lab Findings: Abnormal Lab Results 04/12/18 Range/Units 05:05 Vancomycin Trough 8.0 L (10.0-20.0) mcg/mL - Exam Constitutional: Present: Alert, Oriented x3, Cooperative Extremity: Present: lower extremity edema Lymphatic: Present: other - There is one ulceration present to the distal plantar surface of the left foot sub area of third metatarsal head that measures 1.4 x 0.6 x 4.5 cm. There is no undermining; however, the wound does probe to the dorsum of the foot giving the ulceration its significant depth. Loss of tissue is to full thickness with exposure of subcutaneous fat layer. The wound bed is covered with significant amount of red granulation tissue with surrounding tissue being erythematous. Erythma extends about the amputation stump proximally past the ankle into the lower leg, however not as intense today. There is a moderate amount of serous drainage noted with no malodor present. There is no exposed tendon, however bone can be palpated. Neurologic: Present: sensory deficit Appearance: Present: appropriate appearance Eye contact: Present: cooperative Assessment/Plan - Problems/Diagnosis (1) Cellulitis Problem: Acute Qualifiers: Site of cellulitis: extremity Site of cellulitis of extremity: lower extremity Laterality: left Qualified Code(s): L03.116 - Cellulitis of left lower limb Narrative: Improving. Continue current ABX. (2) Foot ulcer, left Problem: Acute Qualifiers: Non-pressure ulcer stage: unspecified non-pressure ulcer stage Qualified Code(s): L97.529 - Non-pressure chronic ulcer of other part of left foot with unspecified severity Narrative: New dressing of Aquacel Ag, dry gauze, josemanuel, and JEANNE bandage applied. Will continue daily dressing changes until surgery on Saturday. (3) Osteomyelitis of foot, left, acute Problem: Acute Narrative: Will proceed with surgery to remove infected bone/tissue on 04/14/2018, as planned. He will be NPO after midnight prior to surgery. Pt denies having any questions regarding surgery at this time.
[2018-04-12] MEDS: VANCOMYCIN HCL 1.5 GM in DEXTROSE 5 % IN WATER 500 ML IV SCH ×2 (13:30)
[2018-04-12] MEDS: SIMVASTATIN 40 MG TABLET PO SCH (16:28)
[2018-04-12] MEDS: rOPINIRole HCL 1 MG TABLET PO SCH (20:19)
[2018-04-12] MEDS: ENOXAPARIN SODIUM 40 MG/0.4 ML SYRG SC SCH (20:20)
[2018-04-12] MEDS: AMITRIPTYLINE HCL 50 MG TABLET PO SCH (20:20)
[2018-04-13] MEDS: VANCOMYCIN HCL 1.5 GM in DEXTROSE 5 % IN WATER 500 ML IV SCH ×4 (00:34→12:20)
[2018-04-13 05:14] LABS: Hematocrit 34.4 % (42.0-52.0); Hemoglobin 11.4 gm/dL (13.5-18.0); Mean Cell Volume 93.2 fl (78-100); Mean Corpuscular Hemoglobin 30.9 pg (27-31); Mean Corpuscular Hgb Conc 33.1 g/dl (32-36); Mean Platelet Volume 9.2 fl (8-11.3); Neutrophil # 6.3 K/mm3 (1.3-6.0); Platelet Count 393 K/mm3 (150-450); Red Blood Count 3.69 M/mm3 (4.7-6.0); Red Cell Distribution Width 14.6 % (11.5-14.0); White Blood Count 9.4 K/mm3 (4.0-10.5)
[2018-04-13] MEDS: ALLOPURINOL 300 MG TABLET PO SCH (08:38)
[2018-04-13] MEDS: FUROSEMIDE 80 MG TABLET PO SCH (08:38)
[2018-04-13] MEDS: FERROUS SULFATE 325 MG TABLET PO SCH (08:38)
[2018-04-13] MEDS: METOPROLOL TARTRATE 50 MG TABLET PO SCH (08:38)
[2018-04-13] MEDS: PREGABALIN 75 MG CAPSULE PO SCH ×3 (08:38→17:05)
[2018-04-13] MEDS: ESCITALOPRAM OXALATE 10 MG TAB PO SCH (08:38)
[2018-04-13] MEDS: PRAMIPEXOLE DI-HCL 0.5 MG TABLET PO SCH ×2 (08:39)
[2018-04-13] MEDS: GABAPENTIN 300 MG CAPSULE PO SCH ×3 (08:39→17:05)
[2018-04-13] MEDS: FOLIC ACID 0.4 MG TABLET PO SCH (08:39)
[2018-04-13] MEDS: POTASSIUM CHLORIDE 10 MEQ TABLET.SA PO SCH (08:39)
--- NOTE | 2018-04-13 11:29 | PN ---
Subjective - Date and Time Seen Date: 04/13/18 Time: 11:29 Subjective Narrative: Patient continues to do well while here waiting for surgery. He denies any acute events overnight. He is tolerating p.o. well his vital signs have been stable. He has been afebrile. He denies pain in his left lower extremity, states the cellulitis has significantly improved as has the swelling in his left lower foot. Objective - Review of Systems Generalized/Overall Review: Denies: Chills, Fever EENTM: Reports: No Symptoms Reported Respiratory: Denies: Cough, Shortness of Breath Cardiac: Denies: Chest Pain, Palpitations Abdominal: Denies: Nausea, Vomiting Genitourinary Symptoms: Reports: No Symptoms Reported Musculoskeletal Complaints: Reports: No Symptoms Reported Neurological: Reports: No Symptoms Reported Skin: Reports: Other - Cellulitic infection left lower extremity - Vitals Vitals: Last Vital Signs Temp 37.1 C 04/13/18 10:00 Pulse 81 04/13/18 10:00 Resp 16 04/13/18 10:00 BP 99/54 04/13/18 10:00 Pulse Ox 97 04/13/18 10:00 - Abnormal Lab Findings Abnormal Lab Findings: Abnormal Lab Results 04/13/18 Range/Units 05:10 RBC 3.69 L (4.7-6.0) M/mm3 Hgb 11.4 L (13.5-18.0) gm/dL Hct 34.4 L (42.0-52.0) % RDW 14.6 H (11.5-14.0) % Immature Gran % (Auto) 0.70 H (0.001-0.429) % Immature Gran # (Auto) 0.07 H (0.000-0.0310) K/mm3 Lymphocytes % 19.6 L (20-51) % Monocytes % 9.4 H (0.0-9) % Neutrophils # 6.3 H (1.3-6.0) K/mm3 - Exam Constitutional: Present: Alert, Oriented x3, Cooperative, Well developed Respiratory: Present: chest non-tender, lungs clear, normal breath sounds Cardiovascular/Chest: Present: normal peripheral pulses, irregularly irregular. Absent: no murmur Abdomen: Present: Normal bowel sounds, soft, nontender /Rectal: Present: Exam deferred Extremity: Present: non-tender - Left lower extremity tenderness has resolved, lower extremity edema - Left lower extremity swelling much improved Skin Exam: Present: warm/dry, other - Minimal redness that is still circumferential around left lower extremity now below his ankle. Dressings clean and dry Appearance: Present: appropriate appearance, appropriate insight Eye contact: Present: cooperative, good eye contact, normal speech Thoughts: Present: normal thought pattern, normal mood /affect Assessment/Plan Plan Narrative: Patient admitted under inpatient due to failed outpatient oral antibiotics as well as worsening cellulitic infection. 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 Patient started on vancomycin; Zosyn stopped due to cultures growing out MRSA. Patient placed on contact precautions. Vank trough came back at a low level, increased dose to 1.5 g every 12 hours. CBC shows normal white count now, cellulitis significantly improved, left lower extremity minimally tender. Swelling around infection also improving. Dr. Duque has been consulted, patient will be made n.p.o. after midnight of the so patient can be taken back with Dr. Duque for resection of all 5 metatarsal heads. Will stop the normal saline IV, allow patient to eat today. 1 dose of Lovenox given this a.m. and then stopped. Will restart Xarelto once patient has completed his surgery. Chronic medications reconciled and ordered. Vital signs have been stable and patient has been afebrile - Problems/Diagnosis (1) Osteomyelitis of foot, left, acute Problem: Acute (2) Cellulitis Problem: Acute Qualifiers: Site of cellulitis: extremity Site of cellulitis of extremity: lower extremity Laterality: left Qualified Code(s): L03.116 - Cellulitis of left lower limb (3) Foot ulcer, left Problem: Acute Qualifiers: Non-pressure ulcer stage: unspecified non-pressure ulcer stage Qualified Code(s): L97.529 - Non-pressure chronic ulcer of other part of left foot with unspecified severity (4) Failure of outpatient treatment Problem: Acute (5) Hypertension Problem: Chronic (6) History of non-Hodgkin's lymphoma Problem: Chronic (7) Peripheral vascular disease Problem: Chronic (8) A-fib Problem: Acute
[2018-04-13] MEDS ORDERED: ENOXAPARIN SODIUM 40 MG/0.4 ML SYRG SC ONE (11:37)
[2018-04-13] MEDS: SIMVASTATIN 40 MG TABLET PO SCH (17:05)
--- NOTE | 2018-04-13 17:13 | PN ---
Subjective - Date and Time Seen Date: 04/13/18 Time: 17:08 Subjective Narrative: Pt evaluated at bedside resting. States that his left lower leg pain continues to improve, no longer having the pain along his wagner like he was yesterday. Denies any N/V/F/C. Still in agreement with surgery tomorrow to remove infected bone/tissue. No new concerns. Objective - Review of Systems Generalized/Overall Review: Denies: Chills, Fever, Malaise Respiratory: Denies: Shortness of Breath Cardiac: Reports: Edema Abdominal: Denies: Nausea, Vomiting Neurological: Reports: Numbness Skin: Reports: Other - left foot ulcer - Vitals Vitals: Last Vital Signs Temp 37.0 C 04/13/18 15:18 Pulse 82 04/13/18 15:18 Resp 16 04/13/18 15:18 BP 126/73 04/13/18 15:18 Pulse Ox 99 04/13/18 15:18 - Abnormal Lab Findings Abnormal Lab Findings: Abnormal Lab Results 04/13/18 Range/Units 05:10 RBC 3.69 L (4.7-6.0) M/mm3 Hgb 11.4 L (13.5-18.0) gm/dL Hct 34.4 L (42.0-52.0) % RDW 14.6 H (11.5-14.0) % Immature Gran % (Auto) 0.70 H (0.001-0.429) % Immature Gran # (Auto) 0.07 H (0.000-0.0310) K/mm3 Lymphocytes % 19.6 L (20-51) % Monocytes % 9.4 H (0.0-9) % Neutrophils # 6.3 H (1.3-6.0) K/mm3 - Exam Constitutional: Present: Alert, Oriented x3, Cooperative Extremity: Present: lower extremity edema Skin Exam: Present: other - There is one ulceration present to the distal plantar surface of the left foot sub area of third metatarsal head that measures 1.3 x 0.5 x 4.5 cm. There is no undermining; however, the wound does probe to the dorsum of the foot giving the ulceration its significant depth. Loss of tissue is to full thickness with exposure of subcutaneous fat layer. The wound bed is covered with significant amount of red granulation tissue with surrounding tissue being erythematous. Erythma extends about the amputation stump proximally past the ankle into the lower leg, however continues to improve. There is a moderate amount of serous drainage noted with no malodor present. There is no exposed tendon, however bone can be palpated. Appearance: Present: appropriate appearance Assessment/Plan - Problems/Diagnosis (1) Cellulitis Problem: Acute Qualifiers: Site of cellulitis: extremity Site of cellulitis of extremity: lower extremity Laterality: left Qualified Code(s): L03.116 - Cellulitis of left lower limb Narrative: Improving. Continue current ABX. (2) Foot ulcer, left Problem: Acute Qualifiers: Non-pressure ulcer stage: unspecified non-pressure ulcer stage Qualified Code(s): L97.529 - Non-pressure chronic ulcer of other part of left foot with unspecified severity Narrative: New dressing of Aquacel Ag, dry gauze, josemanuel, and JEANNE bandage applied. (3) Osteomyelitis of foot, left, acute Problem: Acute Narrative: Reviewed surgical plan with patient. Will proceed with surgery to remove infected bone/tissue on 04/14/2018, as planned. He will be NPO after midnight tonight. Pt denies having any questions regarding surgery at this time.
[2018-04-13] MEDS: AMITRIPTYLINE HCL 50 MG TABLET PO SCH (20:31)
[2018-04-13] MEDS: rOPINIRole HCL 1 MG TABLET PO SCH (20:31)
[2018-04-14] MEDS ORDERED: VANCOMYCIN HCL LEVEL XX ONE (00:30)
[2018-04-14] MEDS: VANCOMYCIN HCL 1.5 GM in DEXTROSE 5 % IN WATER 500 ML IV SCH ×4 (01:02→14:38)
[2018-04-14] MEDS: GABAPENTIN 300 MG CAPSULE PO SCH ×3 (09:00→18:11)
[2018-04-14] MEDS: PREGABALIN 75 MG CAPSULE PO SCH ×3 (09:00→18:11)
[2018-04-14] MEDS: METOPROLOL TARTRATE 50 MG TABLET PO SCH (09:53)
--- NOTE | 2018-04-14 11:35 | ANES ---
Anesthesia Pre Procedure Eval Vitals/Labs: Last Vital Signs Temp 36.3 C 04/14/18 10:00 Pulse 85 04/14/18 10:00 Resp 18 04/14/18 10:00 BP 128/74 04/14/18 10:00 Pulse Ox 98 04/14/18 10:00 HOME MEDICATIONS Allopurinol [Zyloprim] 300 mg PO DAILY 04/08/18 [Last Taken Unknown] Amitriptyline HCl [Elavil] 50 mg PO QPM 04/08/18 [Last Taken Unknown] Escitalopram Oxalate [Lexapro] 10 mg PO DAILY 04/08/18 [Last Taken Unknown] Ferrous Gluconate 325 mg PO QAM 04/08/18 [Last Taken Unknown] Furosemide [Lasix] 80 mg PO QAM 04/08/18 [Last Taken Unknown] Gabapentin 300 mg PO TID 04/08/18 [Last Taken Unknown] HYDROcodone/ACETAMINOPHEN [Hydrocodon-Acetaminophen 5-325] 1 ea PO TID 04/08/18 [Last Taken Unknown] Methocarbamol [Robaxin] 1.5 mg PO QPM 04/08/18 [Last Taken Unknown] Metoprolol Tartrate [Lopressor] 50 mg PO QAM 04/08/18 [Last Taken Unknown] Potassium Chloride [K-Tab ER] 10 meq PO QAM 04/08/18 [Last Taken Unknown] Pramipexole Di-HCl [Pramipexole Dihydrochloride] 0.5 mg PO QAM 04/08/18 [Last Taken Unknown] Pramipexole Di-HCl [Pramipexole ER] 1.5 mg PO QAM 04/08/18 [Last Taken Unknown] Pregabalin [Lyrica] 150 mg PO TID 04/08/18 [Last Taken Unknown] Rivaroxaban [Xarelto] 20 mg PO QPM 04/08/18 [Last Taken Unknown] Simvastatin 40 mg PO QPM 04/08/18 [Last Taken Unknown] rOPINIRole HCL [Requip] 4 mg PO QPM 04/08/18 [Last Taken Unknown] Acyclovir [Zovirax] 400 mg PO DAILY 04/11/18 [Last Taken Unknown] Folic Acid 0.8 mg PO DAILY 04/11/18 [Last Taken Unknown] Ginkgo Biloba 60 mg PO DAILY 04/11/18 [Last Taken Unknown] Multivit-Min/Folic/Vit K/Lycop [Men's Multivitamin Tablet] 1 ea PO DAILY 04/11/18 [Last Taken Unknown] Allergies/Adverse Reactions: Allergies Allergy/AdvReac Type Severity Reaction Status Date / Time codeine Allergy Intermediate Verified 04/10/18 15:52 - Planned Procedure Planned Procedure: I&D left foot Medication List Reviewed:: Yes Allergies Verified: Yes Medical History (Last Reviewed 04/14/18 @ 11:34 by Omar Andre CRNA) Atrial fibrillation History of recent chemotherapy History of smoking Hypercholesteremia Hypertension Non-Hodgkin lymphoma Pacemaker Polyneuropathy Swelling of both lower extremities Tarsal tunnel syndrome, bilateral Surgical History (Last Reviewed 04/14/18 @ 11:34 by Omar Andre CRNA) Amputated toe of right foot Amputation of little toe History of amputation of left great toe History of amputation of lesser toe of left foot History of back surgery History of bilateral carpal tunnel release History of heart bypass surgery Family History (Last Reviewed 04/14/18 @ 11:34 by Omar Andre CRNA) Father Heart disease Sepsis Mother Heart disease Lupus Other Parents - Family Anesthesia History Family History:: no untoward family reactions to anesthesia, no familial bleeding tendencies, no family history of clotting disorders, no family history of premature - Airway/Neck/Teeth Within Normal Limits:: Yes Teeth Condition: intact Denture Type: Full upper, Full lower Mallampatti Score: 2 Thyromental (T-M) distance: > 6 cm Mandibulo Hyoid distance: > 3 cm - Respiratory Respiratory History: CPAP/BiPAP home use Respiratory Physical: lungs clear Smoking Status: Current every day smoker Discussed smoking cessation including day of surgery: Yes Sleep Apnea currently treated: Yes Sleep Apnea by current assessment: No Discussed Risks/Treatment of EDD: No - Cardiovascular Cardiac History: angina, PA, CAD, hypertension Tolerate Activity: Poor Heart Sounds: S1 & S2, Regular - Anesthesia Assessment and Plan ASA Class: PS, IV Anesthesia Type Plan: General LMA
[2018-04-14] MEDS ORDERED: BACITRACIN 50,000 UNITS VIAL IR ONE (12:10)
[2018-04-14] MEDS ORDERED: BUPIVACAINE HCL 50 ML VIAL IJ ONE (12:10)
[2018-04-14] MEDS ORDERED: LIDOCAINE HCL 10 ML VIAL IJ ONE (12:10)
[2018-04-14] MEDS ORDERED: RINGER'S SOLUTION,LACTATED 1,000 ML IV PRN (12:23)
--- NOTE | 2018-04-14 13:59 | ANES ---
Post Anesthesia Discharge - Transfer of Care Transfer of Care handoff given to nurse: Yes - Discharge from PACU Discharge from PACU when meets criteria: Yes - Discharge to ASU Discharge to ASU-no complications/pt stable: Yes
[2018-04-14] MEDS: FOLIC ACID 0.4 MG TABLET PO SCH (14:27)
[2018-04-14] MEDS: FUROSEMIDE 80 MG TABLET PO SCH (14:27)
[2018-04-14] MEDS: ALLOPURINOL 300 MG TABLET PO SCH (14:28)
[2018-04-14] MEDS: FERROUS SULFATE 325 MG TABLET PO SCH (14:29)
[2018-04-14] MEDS: PRAMIPEXOLE DI-HCL 0.5 MG TABLET PO SCH ×2 (14:29→14:38)
[2018-04-14] MEDS: POTASSIUM CHLORIDE 10 MEQ TABLET.SA PO SCH (14:29)
[2018-04-14] MEDS: ESCITALOPRAM OXALATE 10 MG TAB PO SCH (14:30)
--- NOTE | 2018-04-14 15:40 | ANES ---
Post Anesthesia Assessment - Vital Signs Vitals: Last Vital Signs Temp 36.6 C 04/14/18 14:16 Pulse 79 04/14/18 15:00 Resp 20 04/14/18 15:00 BP 132/77 04/14/18 15:00 Pulse Ox 96 04/14/18 15:00 Airway Patency: Normal - Mental Status Level Of Consciousness: Awake - Pain Level Pain Score: 0 - N/V Assessment Nausea/Vomiting Presence: None Dehydration:: No
--- NOTE | 2018-04-14 16:07 | PN ---
Subjective - Date and Time Seen Date: 04/14/18 Time: 16:03 Subjective Narrative: Patient seen following surgery this afternoon. He currently denies any pain and states that he feels fine, he has no questions or concerns. He is tolerating p.o. well. His vital signs been stable and he has been afebrile. Objective - Review of Systems Generalized/Overall Review: Reports: No Symptoms Reported EENTM: Reports: No Symptoms Reported Respiratory: Denies: Cough, Shortness of Breath Cardiac: Denies: Chest Pain, Edema, Palpitations Abdominal: Denies: Nausea, Vomiting Genitourinary Symptoms: Reports: No Symptoms Reported Musculoskeletal Complaints: Reports: No Symptoms Reported Neurological: Reports: No Symptoms Reported Skin: Reports: Other - Warmth resolved, swelling minimal. Denies: Change in Color - Vitals Vitals: Last Vital Signs Temp 36.6 C 04/14/18 14:16 Pulse 80 04/14/18 15:30 Resp 20 04/14/18 15:30 BP 122/89 04/14/18 15:30 Pulse Ox 98 04/14/18 15:30 - Exam Constitutional: Present: Alert, Oriented x3, Cooperative, Well developed Respiratory: Present: chest non-tender, lungs clear, normal breath sounds Cardiovascular/Chest: Present: normal peripheral pulses, irregularly irregular Abdomen: Present: Normal bowel sounds, soft, nontender Extremity: Absent: leg pain - Left lower extremity dressings in place and intact, clean and dry Skin Exam: Present: normal color, warm/dry Appearance: Present: appropriate appearance, appropriate insight Eye contact: Present: cooperative, good eye contact Thoughts: Present: normal thought pattern, normal mood /affect Assessment/Plan Plan Narrative: Patient admitted under inpatient due to failed outpatient oral antibiotics as well as worsening cellulitic infection. 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 Patient underwent first through fifth metatarsal head resections with Dr. Duque today. Patient tolerated the procedure well without any complications. Will repeat CBC in the morning to check white count as well as H&H. We will also recheck CMP to check electrolytes as well as kidney function. We will start him on Bactrim double strength tomorrow morning to be taken for 5 days. Vancomycin stopped today. Will restart Xarelto in the morning for his A. fib. No Lovenox this evening. Continue heart healthy diet. Patient will also be followed by Dr. Duque, will discuss with her when she feels it is appropriate for him to be discharged. Likely home tomorrow or the next day as long as there are no complications. Chronic medications reconciled and ordered. Vital signs have been stable and patient has been afebrile - Problems/Diagnosis (1) Osteomyelitis of foot, left, acute Problem: Resolved (2) Cellulitis Problem: Resolved Qualifiers: Site of cellulitis: extremity Site of cellulitis of extremity: lower extremity Laterality: left Qualified Code(s): L03.116 - Cellulitis of left lower limb (3) Foot ulcer, left Problem: Acute Qualifiers: Non-pressure ulcer stage: unspecified non-pressure ulcer stage Qualified Code(s): L97.529 - Non-pressure chronic ulcer of other part of left foot with unspecified severity (4) Failure of outpatient treatment Problem: Resolved (5) Hypertension Problem: Chronic (6) History of non-Hodgkin's lymphoma Problem: Chronic (7) Peripheral vascular disease Problem: Chronic (8) A-fib Problem: Acute
[2018-04-14] MEDS: SIMVASTATIN 40 MG TABLET PO SCH (18:10)
[2018-04-14] MEDS: rOPINIRole HCL 1 MG TABLET PO SCH (20:51)
[2018-04-14] MEDS: AMITRIPTYLINE HCL 50 MG TABLET PO SCH (20:51)
[2018-04-14] MEDS ORDERED: traMADol HCL 50 MG TABLET PO PRN (21:15)
[2018-04-14] MEDS ORDERED: ACETAMINOPHEN 325 MG TABLET PO PRN (21:16)
[2018-04-15 05:48] LABS: Hematocrit 34.8 % (42.0-52.0); Mean Cell Volume 95.1 fl (78-100); Mean Corpuscular Hemoglobin 30.1 pg (27-31); Mean Corpuscular Hgb Conc 31.6 g/dl (32-36); Mean Platelet Volume 9.2 fl (8-11.3); Neutrophil # 5.9 K/mm3 (1.3-6.0); Neutrophil % 60.6 % (42-75.0); Platelet Count 446 K/mm3 (150-450); Red Blood Count 3.66 M/mm3 (4.7-6.0); Red Cell Distribution Width 14.7 % (11.5-14.0); White Blood Count 9.7 K/mm3 (4.0-10.5)
[2018-04-15] MEDS ORDERED: BUPIVACAINE HCL 50 ML VIAL IJ ONE (06:00)
[2018-04-15] MEDS ORDERED: LIDOCAINE HCL 50 ML VIAL IJ ONE (06:00)
[2018-04-15 06:26] LABS: Albumin * 2.3 gm/dl (3.4-5.0); Anion Gap 9.1 mmol/L (6.8-13.8); BUN/Creatinine Ratio 14.4 (9.0-21.6); Bilirubin, Total 0.3 mg/dL (0.0-1.1); Ca. Corrected For Albumin 10.1 mg/dL (8.4-10.2); Calcium * 9.1 mg/dL (7.9-10.9); Carbon Dioxide 37.6 mmol/L (24-32.6); Potassium 3.7 mmol/L (3.4-4.6); Total Protein 7.1 gm/dL (6.2-8.2)
[2018-04-15] MEDS: PREGABALIN 75 MG CAPSULE PO SCH ×2 (08:33→13:17)
[2018-04-15] MEDS: METOPROLOL TARTRATE 50 MG TABLET PO SCH (08:33)
[2018-04-15] MEDS: GABAPENTIN 300 MG CAPSULE PO SCH ×2 (08:33→13:16)
[2018-04-15] MEDS: FOLIC ACID 0.4 MG TABLET PO SCH (08:54)
[2018-04-15] MEDS: PRAMIPEXOLE DI-HCL 0.5 MG TABLET PO SCH ×2 (08:54→09:13)
[2018-04-15] MEDS: POTASSIUM CHLORIDE 10 MEQ TABLET.SA PO SCH (08:55)
[2018-04-15] MEDS: FUROSEMIDE 80 MG TABLET PO SCH (08:55)
[2018-04-15] MEDS: FERROUS SULFATE 325 MG TABLET PO SCH (08:55)
[2018-04-15] MEDS: ALLOPURINOL 300 MG TABLET PO SCH (08:55)
[2018-04-15] MEDS: ESCITALOPRAM OXALATE 10 MG TAB PO SCH (08:55)
[2018-04-15] MEDS ORDERED: SULFAMETHOXAZOLE/TRIMETHOPRIM 1 TAB TABLET PO SCH (09:00)
--- NOTE | 2018-04-15 12:09 | PN ---
Subjective - Date and Time Seen Date: 04/15/18 Time: 11:30 Subjective Narrative: Pt evaluated in bedside chair resting. States that his left lower leg pain has resolved. Denies any pain in the left foot following surgery yesterday. Denies any N/V/F/C. States that he is having a hard time keeping the surgical shoe on when he walks. Has questions about other options. No new concerns. Likely d/c home today. Objective - Review of Systems Generalized/Overall Review: Denies: Chills, Fever Respiratory: Denies: Shortness of Breath Cardiac: Reports: Edema Abdominal: Denies: Nausea, Vomiting, Diarrhea Neurological: Reports: Numbness Skin: Reports: Other - ulceration left foot, surgical incision left foot - Vitals Vitals: Last Vital Signs Temp 37.1 C 04/15/18 11:00 Pulse 80 04/15/18 11:00 Resp 18 04/15/18 11:00 BP 109/67 04/15/18 11:00 Pulse Ox 93 04/15/18 11:00 - Abnormal Lab Findings Abnormal Lab Findings: Abnormal Lab Results 04/15/18 04/15/18 Range/Units 05:41 05:41 RBC 3.66 L (4.7-6.0) M/mm3 Hgb 11.0 L (13.5-18.0) gm/dL Hct 34.8 L (42.0-52.0) % MCHC 31.6 L (32-36) g/dl RDW 14.7 H (11.5-14.0) % Immature Gran % (Auto) 0.80 H (0.001-0.429) % Immature Gran # (Auto) 0.08 H (0.000-0.0310) K/mm3 Carbon Dioxide 37.6 H (24-32.6) mmol/L Random Glucose 142 H (70-110) mg/dL Albumin 2.3 L (3.4-5.0) gm/dl - Exam Constitutional: Present: Alert, Oriented x3, Cooperative Extremity: Present: lower extremity edema Skin Exam: Present: other - Dressing to left foot CDI with moderate bloody drainage following surgery. Incision to distal left foot well approximated with sutures intact. Still with bloody drainage from central incision. There remains one ulceration present to the distal plantar surface of the left foot. Packing is in place in the ulceration, upon removal there is a moderate amount of bloody drainage noted with no malodor present. Wound bed with healthy granulation tissue. Surrounding tissue pink and intact, no longer with erythema. Mild swelling present. Neurologic: Present: sensory deficit Appearance: Present: appropriate appearance Eye contact: Present: cooperative Assessment/Plan - Problems/Diagnosis (1) Cellulitis Problem: Resolved Qualifiers: Site of cellulitis: extremity Site of cellulitis of extremity: lower extremity Laterality: left Qualified Code(s): L03.116 - Cellulitis of left lower limb Narrative: Resolved. Will plan for a few more days of oral ABX on d/c home given severity of previous infection. (2) Foot ulcer, left Problem: Acute Qualifiers: Non-pressure ulcer stage: unspecified non-pressure ulcer stage Qualified Code(s): L97.529 - Non-pressure chronic ulcer of other part of left foot with unspecified severity (3) Osteomyelitis of foot, left, acute Problem: Resolved Narrative: POD #1 s/p I&D with garcia-metatarsal head resection and revision of amputation stump. Incision healing as expected. Packing replaced and new DSD applied. To be kept CDI. Will transition from a surgical shoe to a boot to see if that helps with ambulation. Ok for d/c home today. Will f/u in my office this , 04/17/2018, at 1:00 pm. Pt to call with any questions or concerns.
--- NOTE | 2018-04-15 12:45 | DS ---
(1) Osteomyelitis of foot, left, acute Problem: Resolved (2) Cellulitis Problem: Resolved Qualifiers: Site of cellulitis: extremity Site of cellulitis of extremity: lower extremity Laterality: left Qualified Code(s): L03.116 - Cellulitis of left lower limb (3) Foot ulcer, left Problem: Acute Qualifiers: Non-pressure ulcer stage: unspecified non-pressure ulcer stage Qualified Code(s): L97.529 - Non-pressure chronic ulcer of other part of left foot with unspecified severity (4) Failure of outpatient treatment Problem: Resolved (5) Hypertension Problem: Chronic (6) History of non-Hodgkin's lymphoma Problem: Chronic (7) Peripheral vascular disease Problem: Chronic (8) A-fib Problem: Acute Description of Stay: 68-year-old male presented with plantar ulcer of his left foot with surrounding cellulitis. Bone scan showed first and second metatarsal head osteomyelitis patient has had a white count of 13.9. He was started on vancomycin and Zosyn. Dr. Duque was consulted to resect the first and second metatarsal head, but it was decided that patient would likely do better with a total resection of 1-5 metatarsal head resection which both he and Dr. Duque agreed upon. Patient tolerated the procedure well, no complications. His hemoglobin remained stable. His white count trended down and he was switched over to Bactrim which he will take for another 4 days from an outpatient setting. While here the patient was afebrile, his vital signs are stable. He had minimal pain to his left foot. He did complain of some back pain which is a chronic issue. Patient's infection 7 from peripheral vascular disease a poor blood flow to his left lower extremity. He will continue to follow with Dr. Duque in outpatient setting as well for wound management. Patient has a history of atrial fibrillation and came in on Xarelto. This was held while he was here and he was given Lovenox. Xarelto to be restarted the day of discharge and to be taken as directed thereafter. Patient also advised to restart potassium after he completes his 5-day course of Bactrim. Procedures Performed: see notes below List Procedures: First through fifth metatarsal head resection of his left foot performed by Dr. Duque Results and Findings: Pending Mircobiology Results 04/14/18 12:35 Foot - Left Miscellaneous Culture - Preliminary No Growth 04/10/18 17:30 Blood Blood Culture - Preliminary NO GROWTH AFTER 48 HOURS 04/10/18 17:30 Blood Blood Culture - Preliminary NO GROWTH AFTER 48 HOURS Lab Pending Results 04/10/18 16:05: WBC 13.9 H, RBC 4.16 L, Hgb 12.9 L, Hct 38.4 L, MCV 92.3, MCH 31.0, MCHC 33.6, RDW 14.8 H, Plt Count 372, MPV 9.4, Immature Gran % (Auto) 0.60 H, Immature Gran # (Auto) 0.09 H, Neutrophils % 72.4, Lymphocytes % 16.1 L, Monocytes % 9.1 H, Eosinophils % 1.4, Basophils % 0.4, Nucleated RBC % 0.0, Neutrophils # 10.1 H, Lymphocytes # 2.25, Monocytes # 1.3 H, Eosinophils # 0.2, Absolute Basophils 0.1 04/10/18 16:05: Sodium 139, Plasma Sodium 139, Potassium 3.5, Chloride 98, Carbon Dioxide 31.6, Anion Gap 12.9, BUN 14, Creatinine 0.96, Est GFR (Non-Af Amer) 83, BUN/Creatinine Ratio 14.6, Random Glucose 108, Calcium 9.2, Calcium Adj for Albumin 9.7, Total Bilirubin 0.6, AST 23, ALT 15 L, Alkaline Phosphatase 116, C-Reactive Prot, Quant Less than 0.2, Total Protein 7.4, Albumin 3.0 L 04/10/18 16:05: Lactic Acid, Venous 3.0 H* 04/10/18 16:05: ESR 110 H 04/10/18 19:36: Lactic Acid, Venous 1.5 04/11/18 06:47: WBC 11.5 H, RBC 3.54 L, Hgb 10.8 L, Hct 32.8 L, MCV 92.7, MCH 30.5, MCHC 32.9, RDW 14.9 H, Plt Count 365, MPV 9.4, Immature Gran % (Auto) 0.50 H, Immature Gran # (Auto) 0.06 H, Neutrophils % 67.4, Lymphocytes % 20.4, Monocytes % 9.1 H, Eosinophils % 2.2, Basophils % 0.4, Nucleated RBC % 0.0, Neutrophils # 7.8 H, Lymphocytes # 2.35, Monocytes # 1.1 H, Eosinophils # 0.3, Absolute Basophils 0.1 04/12/18 05:05: Creatinine 0.69, Vancomycin Trough 8.0 L 04/13/18 05:10: Creatinine 0.77 04/13/18 05:10: WBC 9.4, RBC 3.69 L, Hgb 11.4 L, Hct 34.4 L, MCV 93.2, MCH 30.9, MCHC 33.1, RDW 14.6 H, Plt Count 393, MPV 9.2, Immature Gran % (Auto) 0.70 H, Immature Gran # (Auto) 0.07 H, Neutrophils % 67.0, Lymphocytes % 19.6 L, Monocytes % 9.4 H, Eosinophils % 2.7, Basophils % 0.6, Nucleated RBC % 0.0, N eutrophils # 6.3 H, Lymphocytes # 1.85, Monocytes # 0.9, Eosinophils # 0.3, Absolute Basophils 0.1 04/14/18 00:35: Vancomycin Trough 10.8 04/14/18 05:30: Creatinine 0.78 04/14/18 14:00: Pathology Specimen Spec to path 04/15/18 05:41: WBC 9.7, RBC 3.66 L, Hgb 11.0 L, Hct 34.8 L, MCV 95.1, MCH 30.1, MCHC 31.6 L, RDW 14.7 H, Plt Count 446, MPV 9.2, Immature Gran % (Auto) 0.80 H, Immature Gran # (Auto) 0.08 H, Neutrophils % 60.6, Lymphocytes % 26.7, Monocytes % 9.0, Eosinophils % 2.4, Basophils % 0.5, Nucleated RBC % 0.0, Neutrophils # 5.9, Lymphocytes # 2.59, Monocytes # 0.9, Eosinophils # 0.2, Absolute Basophils 0.1 04/15/18 05:41: Sodium 141, Plasma Sodium 142, Potassium 3.7, Chloride 98, Carbon Dioxide 37.6 H, Anion Gap 9.1, BUN 15, Creatinine 1.04, Est GFR (Non-Af Amer) 75, BUN/Creatinine Ratio 14.4, Random Glucose 142 H, Calcium 9.1, Calcium Adj for Albumin 10.1, Total Bilirubin 0.3, AST 25, ALT 21, Alkaline Phosphatase 118, Total Protein 7.1, Albumin 2.3 L Discharge Location: Home Disposition: Home self-care Condition: Fair Discharge Activity: Non-Weight bearing - Left lower extremity Discharge Diet: Low fat/chol Referrals: Riley Maciel DO [Staff Physician] - One Week Additional Patient Instructions (free text): -Please make TCM appointment unless penitentiary discharge. Thank you! Sabrina @ [phone]. Follow up with Dr. Duque on April 17 at 12:45 for dressing change. Prescriptions (Any new or edited meds): Sulfamethoxazole/Trimethoprim [Bactrim Ds] 1 tab PO BID #10 tab Complete Home Medications List: Complete Home Medication List: Allopurinol [Zyloprim] 300 mg PO DAILY 04/08/18 Amitriptyline HCl [Elavil] 50 mg PO QPM 04/08/18 Escitalopram Oxalate [Lexapro] 10 mg PO DAILY 04/08/18 Ferrous Gluconate 325 mg PO QAM 04/08/18 Furosemide [Lasix] 80 mg PO QAM 04/08/18 Gabapentin 300 mg PO TID 04/08/18 HYDROcodone/ACETAMINOPHEN [Hydrocodone-Acetamin 5-325 mg] 1 ea PO TID 04/08/18 Methocarbamol [Robaxin] 1.5 mg PO QPM 04/08/18 Metoprolol Tartrate [Lopressor] 50 mg PO QAM 04/08/18 Potassium Chloride [K-Tab ER] 10 meq PO QAM 04/08/18 Pramipexole Di-HCl [Pramipexole Dihydrochloride] 0.5 mg PO QAM 04/08/18 Pramipexole Di-HCl [Pramipexole ER] 1.5 mg PO QAM 04/08/18 Pregabalin [Lyrica] 150 mg PO TID 04/08/18 Rivaroxaban [Xarelto] 20 mg PO QPM 04/08/18 Simvastatin 40 mg PO QPM 04/08/18 rOPINIRole HCL [Requip] 4 mg PO QPM 04/08/18 Acyclovir [Zovirax] 400 mg PO DAILY 04/11/18 Folic Acid 0.8 mg PO DAILY 04/11/18 Ginkgo Biloba 60 mg PO DAILY 04/11/18 Multivit-Min/Folic/Vit K/Lycop [Men's Multivitamin Tablet] 1 ea PO DAILY 04/11/18 Sulfamethoxazole/Trimethoprim [Bactrim Ds] 1 tab PO BID #10 tab 04/15/18
[2018-04-15] MEDS ORDERED: HYDROcodone/ACETAMINOPHEN 1 EACH TABLET PO SCH (13:00)
[2018-04-15 13:59] VITALS: BP 113/64
[2018-04-15] MEDS ORDERED: METHOCARBAMOL 500 MG TABLET PO SCH (17:00)
[2018-04-15] MEDS ORDERED: RIVAROXABAN 20 MG TABLET PO SCH (17:00)
[2018-04-16] MEDS ORDERED: MULTIVITAMINS 1 CAP CAPSULE PO SCH (09:00)
[2018-04-16] MEDS ORDERED: ACYCLOVIR 200 MG CAPSULE PO SCH (09:00)
[2018-04-16] MEDS ORDERED: GINKGO BILOBA 60 MG PO SCH (09:00)
== END 2018-04-15 14:36 | disposition home or self-care (01) | DRG 504 ==
LOC: ER 14:53 → MS 17:45
PROVIDERS: ADMIT Family Medicine; ATTEND Family Medicine
CPT/HCPCS: 36415; 73630; 78315; 80053; 80202; 82565; 83605; 85025; 85652; 86140; 87040; 87070; 87075; 87077; 87081; 87186; 88305; 88311; 88312; 96374; 99285; A9503

== ENCOUNTER 2018-09-03 13:30 | Inpatient (IN) ==
[2018-09-03 15:15] LABS: Hematocrit 39.3 % (42.0-52.0); Hemoglobin 12.7 gm/dL (13.5-18.0); Mean Cell Volume 92.5 fl (78-100); Mean Corpuscular Hemoglobin 29.9 pg (27-31); Mean Corpuscular Hgb Conc 32.3 g/dl (32-36); Mean Platelet Volume 8.7 fl (8-11.3); Neutrophil # 14.8 K/mm3 (1.3-6.0); Neutrophil % 82.2 % (42-75.0); Platelet Count 277 K/mm3 (150-450); Red Blood Count 4.25 M/mm3 (4.7-6.0); Red Cell Distribution Width 14.8 % (11.5-14.0)
--- NOTE | 2018-09-03 15:46 | PN ---
Raffy Note - Interim Date: 09/03/18 Time: 15:45 Narrative: 09/03/18 15:45 Patient was seen in office today. Case discussed with Dr. Maciel. Agree with admission for IV antibiotics. Please refer to office visit note dated today, 09/03/18, for consultation note.
[2018-09-03 16:29] LABS: BUN/Creatinine Ratio 12.3 (9.0-21.6)
[2018-09-03 16:30] LABS: Albumin * 2.9 gm/dl (3.4-5.0); Anion Gap 13.5 mmol/L (6.8-13.8); Ca. Corrected For Albumin 9.6 mg/dL (8.4-10.2); Potassium 3.5 mmol/L (3.4-4.6); Total Protein 8.1 gm/dL (6.2-8.2)
[2018-09-03] MEDS: SIMVASTATIN 40 MG TABLET PO SCH (16:42)
[2018-09-03] MEDS: AMITRIPTYLINE HCL 50 MG TABLET PO SCH (16:43)
[2018-09-03] MEDS: VANCOMYCIN HCL IV SCH ×3 (16:44)
[2018-09-03] MEDS: DEXTROSE 5% IV SCH ×3 (16:44)
[2018-09-03] MEDS: WATER IV SCH ×3 (16:44)
[2018-09-03] MEDS ORDERED: RIVAROXABAN 20 MG TABLET PO SCH (17:00)
--- NOTE | 2018-09-03 17:11 | HP ---
Chief Complaint - Chief Complaint Date of Service: 09/03/18 Time of Service: 17:10 Chief Complaint: LLE cellulitis, fever History of Present Illness: 68-year-old male presented to the clinic today for podiatry appointment after developing left lower extremity warmth and tenderness over the last [address] Duque initially put him on Bactrim for was a starting cellulitis. Patient became febrile today and infection worsened. He was reevaluated today where it was decided to admit him directly from the clinic in observation for IV antibiotics and for CT scan of his left lower extremity to look for possible osteomyelitis. Patient has had significant issues with this foot, requiring complete metatarsal head resection back in April. Medical History (Updated 09/03/18 @ 14:34 by Melinda Duque DPM) Atrial fibrillation (Acute) Hypercholesteremia (Acute) Hypertension (Acute) Polyneuropathy (Chronic) History of recent chemotherapy History of smoking Non-Hodgkin lymphoma Swelling of both lower extremities Tarsal tunnel syndrome, bilateral Surgical History: Surgical History (Updated 07/23/18 @ 15:28 by Justine Ortega RN) history of teeth extraction Onset Date: ~1979 Amputated toe of right foot Amputation of little toe History of amputation of left great toe History of amputation of lesser toe of left foot History of ankle surgery Onset Date: Unknown bilateral History of back surgery [id number]. Neck surgery History of bilateral carpal tunnel release Onset Date: ~1998 bilateral History of colonoscopy Onset Date: 07/21/182004-normal. 07/21/18 [place]-redundant colon. Recheck 10 yrs. History of heart bypass surgery Onset Date: ~1999 double History of knee replacement Onset Date: Unknown right History of tonsillectomy Onset Date: ~1954 Incision and debridement 04/14/18/Dr. Duque/left foot, with garcia resection of metatarsals, revision of amputation stump Pacemaker Family History: Family History (Last Reviewed 09/03/18 @ 15:46 by Leslie Jackson RN) Father , age 90-gangrene Heart disease Sepsis Mother , age 87-CHF Heart disease Lupus Brother unknown health history Other Parents Social History: Patient Lives/Resources With Spouse Utilized Preferred Language Central African Do you have any jehovah's witness or No cultural preference? Smoking Status Current some day smoker Have you smoked in the past 12 No months Do you dip or chew tobacco Yes (Last Updated 09/03/18 @ 14:42 by Melinda Duque DPM) No Social History Section defined Review Of Systems (GEN) - Review of Systems Generalized/Overall Review: Present: Fever. Absent: Weakness, Chills EENTM: Present: No Symptoms Reported Respiratory: Present: No Symptoms Reported Cardiac: Present: No Symptoms Reported Abdominal: Present: No Symptoms Reported Genitourinary: Present: No Symptoms Reported Musculoskeletal: Present: Other - Left foot pain Skin: Present: Change in Color - Left lower extremity, mid wagner, warm to the touch Immunizations: IMMUNIZATION HX Immunizations Up to Date Yes History of Influenza Vaccine Yes Allergies/Adverse Reactions: Allergies Allergy/AdvReac Type Severity Reaction Status Date / Time codeine Allergy Severe LOC Verified 09/03/18 15:46 Home Medications: HOME MEDICATIONS Allopurinol [Zyloprim] 300 mg PO DAILY 04/08/18 [Last Taken Unknown] Amitriptyline HCl [Elavil] 50 mg PO QPM 04/08/18 [Last Taken Unknown] Escitalopram Oxalate [Lexapro] 10 mg PO DAILY 04/08/18 [Last Taken Unknown] Ferrous Gluconate 325 mg PO QAM 04/08/18 [Last Taken Unknown] Simvastatin 40 mg PO QPM 04/08/18 [Last Taken Unknown] Folic Acid 0.8 mg PO DAILY 04/11/18 [Last Taken Unknown] Ginkgo Biloba 60 mg PO DAILY 04/11/18 [Last Taken Unknown] Multivit-Min/Folic/Vit K/Lycop [Men's Multivitamin Tablet] 1 ea PO DAILY 04/11/18 [Last Taken Unknown] Walk In Bathtub 1 unit MISCELLANEOUS .COMPLEX #1 unit 06/05/18 [Last Taken Unknown] ropinirole 4 mg tablet 4 mg PO BID #60 tab 06/05/18 [Last Taken Unknown] methocarbamol 500 mg tablet 1.5 mg PO QPM 07/15/18 [Last Taken Unknown] biotin PO 07/21/18 [Last Taken Unknown] furosemide 80 mg tablet 80 mg PO DAILY 07/21/18 [Last Taken Unknown] nitroglycerin 0.4 mg sublingual tablet 0.4 mg SL Q5M PRN 07/21/18 [Last Taken Unknown] gabapentin 300 mg capsule 300 mg PO TID #90 cap 08/12/18 [Last Taken Unknown] rivaroxaban 20 mg tablet 20 mg PO QPM #90 tab 08/20/18 [Last Taken Unknown] methotrexate sodium 2.5 mg tablet 20 mg PO QWEEK tab 09/01/18 [Last Taken Unknown] sulfamethoxazole 800 mg-trimethoprim 160 mg tablet 1 tab PO Q8H 10 Days #30 tab 09/02/18 [Last Taken Unknown] Exam - Exam Vital Signs: Vital Signs - Last Taken Temp 36.8 C 09/03/18 15:24 Pulse 79 09/03/18 15:24 Resp 18 09/03/18 15:24 BP 136/70 09/03/18 15:24 Pulse Ox 98 09/03/18 15:24 Constitutional: Present: Alert, Oriented x3 ENT Exam: Present: hearing grossly normal Eye Exam: bilateral eye: normal inspection Neck: Present: non-tender, supple Respiratory: Present: lungs clear, normal breath sounds Cardiovascular/Chest: Present: normal peripheral pulses, regular rate, rhythm, no murmur Skin Exam: Present: other - Warm to touch. Absent: normal color - Left lower extremity cellulitic infection of the mid wagner Appearance: Present: appropriate appearance, appropriate insight Eye contact: Present: cooperative, good eye contact Thoughts: Present: normal thought pattern, normal mood /affect Diagnostic Studies: Abnormal Lab Results 09/03/18 09/03/18 09/03/18 Range/Units 15:10 15:10 15:10 WBC 18.0 H (4.0-10.5) K/mm3 RBC 4.25 L (4.7-6.0) M/mm3 Hgb 12.7 L (13.5-18.0) gm/dL Hct 39.3 L (42.0-52.0) % RDW 14.8 H (11.5-14.0) % Immature Gran % (Auto) 0.60 H (0.001-0.429) % Immature Gran # (Auto) 0.10 H (0.000-0.0310) K/mm3 Neutrophils % 82.2 H (42-75.0) % Lymphocytes % 10.9 L (20-51) % Neutrophils # 14.8 H (1.3-6.0) K/mm3 ESR 95 H (0-10) mm/hr ALT 16 L (19-67) U/L Albumin 2.9 L (3.4-5.0) gm/dl Laboratory Results WBC 18.0 K/mm3 (4.0-10.5) H 09/03/18 15:10 RBC 4.25 M/mm3 (4.7-6.0) L 09/03/18 15:10 Hgb 12.7 gm/dL (13.5-18.0) L 09/03/18 15:10 Hct 39.3 % (42.0-52.0) L 09/03/18 15:10 MCV 92.5 fl (78-100) 09/03/18 15:10 MCH 29.9 pg (27-31) 09/03/18 15:10 MCHC 32.3 g/dl (32-36) 09/03/18 15:10 RDW 14.8 % (11.5-14.0) H 09/03/18 15:10 Plt Count 277 K/mm3 (150-450) 09/03/18 15:10 MPV 8.7 fl (8-11.3) 09/03/18 15:10 Immature Gran % (Auto) 0.60 % (0.001-0.429) H 09/03/18 15:10 Immature Gran # (Auto) 0.10 K/mm3 (0.000-0.0310) H 09/03/18 15:10 82.2 % (42-75.0) H 09/03/18 15:10 10.9 % (20-51) L 09/03/18 15:10 5.0 % (0.0-9) 09/03/18 15:10 1.0 % (0.0-3.0) 09/03/18 15:10 0.3 % (0.0-1.0) 09/03/18 15:10 Nucleated RBC % 0.0 k/mm3 (0-1) 09/03/18 15:10 14.8 K/mm3 (1.3-6.0) H 09/03/18 15:10 1.96 k/mm3 (1.5-3.5) 09/03/18 15:10 0.9 k/mm3 (0.0-1.0) 09/03/18 15:10 0.2 k/mm3 (0.0-0.7) 09/03/18 15:10 Absolute Basophils 0.1 k/mm3 (0.0-0.1) 09/03/18 15:10 ESR 95 mm/hr (0-10) H 09/03/18 15:10 Sodium 136 mmol/L (132-142) 09/03/18 15:10 136 mmol/L (130-142) 09/03/18 15:10 Potassium 3.5 mmol/L (3.4-4.6) 09/03/18 15:10 Chloride 101 mmol/L (97-106) 09/03/18 15:10 Carbon Dioxide 25.0 mmol/L (24-32.6) 09/03/18 15:10 13.5 mmol/L (6.8-13.8) 09/03/18 15:10 BUN 9 mg/dL (6-23) 09/03/18 15:10 0.73 mg/dL (0.4-1.4) 09/03/18 15:10 0.76 mg/dL (0.4-1.4) 09/03/18 15:10 Est GFR (Non-Af Amer) 114 mL/min (60-130) D 09/03/18 15:10 12.3 (9.0-21.6) 09/03/18 15:10 82 mg/dL (70-110) 09/03/18 15:10 Calcium 9.0 mg/dL (7.9-10.9) 09/03/18 15:10 Calcium Adj for Albumin 9.6 mg/dL (8.4-10.2) 09/03/18 15:10 1.0 mg/dL (0.0-1.1) 09/03/18 15:10 AST 17 U/L (0-48) 09/03/18 15:10 ALT 16 U/L (19-67) L 09/03/18 15:10 84 U/L (50-170) 09/03/18 15:10 8.1 gm/dL (6.2-8.2) 09/03/18 15:10 2.9 gm/dl (3.4-5.0) L 09/03/18 15:10 Assessment/Plan - Narrative Narrative: Patient placed under observation for worsening cellulitic infection despite outpatient oral antibiotic treatment with Bactrim. Patient was started on vancomycin, dosing to be managed by pharmacy. Vank trough to be obtained 1 hour prior to the fourth dose. Tylenol as needed for fever. We will start him on some IV fluids at 200 mL's normal saline per hour. Dr. Duque ordered a CT scan, results pending. Will order ESR, CBC, CMP. Will wait to see how patient responds to IV treatment though patient may need to have further surgical intervention. Will discuss this with Dr. Galvan in the morning. Will make patient NPO at midnight. No DVT PPX as patient on xarelto for a-fib. Will hold this tomorrow. Resume other chronic medications, nurse will call with any questions or concerns. - Assessment/Plan (1) Cellulitis Problem: Acute Qualifiers: Site of cellulitis: extremity Site of cellulitis of extremity: lower extremity Laterality: left Qualified Code(s): L03.116 - Cellulitis of left lower limb (2) Osteomyelitis of foot, left, acute Problem: Suspected (3) Hypertension Problem: Chronic (4) Failure of outpatient treatment Problem: Resolved (5) A-fib Problem: Chronic (6) Polyneuropathy Problem: Chronic (7) Hypertension Problem: Acute
[2018-09-03] MEDS: rOPINIRole HCL 1 MG TABLET PO SCH (20:33)
[2018-09-03] MEDS: ACETAMINOPHEN 500 MG TABLET PO PRN (20:33)
[2018-09-03] MEDS: GABAPENTIN 300 MG CAPSULE PO SCH (20:34)
[2018-09-03] MEDS: NORMAL SALINE 1,000 ML IV PRN (22:05)
[2018-09-04] MEDS: NORMAL SALINE 1,000 ML IV PRN (02:56)
[2018-09-04] MEDS: WATER IV SCH ×6 (05:22→16:47)
[2018-09-04] MEDS: DEXTROSE 5% IV SCH ×6 (05:22→16:47)
[2018-09-04] MEDS: VANCOMYCIN HCL IV SCH ×6 (05:22→16:47)
[2018-09-04] MEDS: GABAPENTIN 300 MG CAPSULE PO SCH ×3 (07:07→21:30)
[2018-09-04] MEDS: ALLOPURINOL 300 MG TABLET PO SCH (10:17)
[2018-09-04] MEDS: FUROSEMIDE 80 MG TABLET PO SCH (10:17)
[2018-09-04] MEDS: ESCITALOPRAM OXALATE 10 MG TAB PO SCH (10:17)
[2018-09-04] MEDS: rOPINIRole HCL 1 MG TABLET PO SCH ×3 (10:17→18:42)
[2018-09-04 11:10] LABS: Hematocrit 35.9 % (42.0-52.0); Hemoglobin 11.8 gm/dL (13.5-18.0); Mean Cell Volume 93.5 fl (78-100); Mean Corpuscular Hemoglobin 30.7 pg (27-31); Mean Corpuscular Hgb Conc 32.9 g/dl (32-36); Neutrophil # 11.8 K/mm3 (1.3-6.0); Neutrophil % 84.5 % (42-75.0); Platelet Count 264 K/mm3 (150-450); Red Blood Count 3.84 M/mm3 (4.7-6.0); Red Cell Distribution Width 14.8 % (11.5-14.0); White Blood Count 13.9 K/mm3 (4.0-10.5)
[2018-09-04] MEDS ORDERED: NORMAL SALINE 1,000 ML IV PRN (11:24)
[2018-09-04] MEDS: traMADol HCL 50 MG TABLET PO PRN (13:45)
--- NOTE | 2018-09-04 16:37 | PN ---
Subjective - Date and Time Seen Date: 09/04/18 Time: 15:30 Subjective Narrative: Pt seen at bedside resting. States that he is feeling much better today. Left leg still with some tenderness over the wagner, but improved. No longer with fever or chills. Has questions today about surgical options. States "if you told me we were cutting off the leg tomorrow, I would let you." He has been battling ulcerations and recurrent infections in this foot for over a year, and it is getting exhausting for him. He states "I know you inherited this whole mess, it's not your fault." He has completed a 6 week course of IV ABX just a few months ago, and has remained infection free until just 2 days ago when a blister/new ulcer was found to the plantar surface of his foot. Objective - Review of Systems Generalized/Overall Review: Reports: Fatigue. Denies: Chills, Fever Respiratory: Denies: Shortness of Breath Cardiac: Reports: Edema Abdominal: Denies: Nausea, Vomiting, Diarrhea Musculoskeletal Complaints: Reports: Other - left leg/foot pain Neurological: Reports: Numbness Skin: Reports: Other - ulcer/blister left foot - Vitals Vitals: Last Vital Signs Temp 37.7 C 09/04/18 15:21 Pulse 79 09/04/18 15:21 Resp 16 09/04/18 15:21 BP 122/65 09/04/18 15:21 Pulse Ox 100 09/04/18 15:21 - Abnormal Lab Findings Abnormal Lab Findings: Abnormal Lab Results 09/03/18 09/04/18 Range/Units 15:10 10:46 WBC 13.9 H D (4.0-10.5) K/mm3 RBC 3.84 L (4.7-6.0) M/mm3 Hgb 11.8 L (13.5-18.0) gm/dL Hct 35.9 L (42.0-52.0) % RDW 14.8 H (11.5-14.0) % Immature Gran % (Auto) 0.60 H (0.001-0.429) % Immature Gran # (Auto) 0.09 H (0.000-0.0310) K/mm3 Neutrophils % 84.5 H (42-75.0) % Lymphocytes % 8.5 L (20-51) % Neutrophils # 11.8 H (1.3-6.0) K/mm3 Lymphocytes # 1.18 L (1.5-3.5) k/mm3 ALT 16 L (19-67) U/L Albumin 2.9 L (3.4-5.0) gm/dl - Exam Constitutional: Present: Alert, Oriented x3, Cooperative Cardiovascular/Chest: Present: normal peripheral pulses Extremity: Present: lower extremity edema, leg pain Skin Exam: Present: other - Ulceration to lateral left foot unchanged in size from yesterday. Blister/ulceration to plantar surface of left foot unchanged in size from yesterday, however no longer appears macerated. Scant serous drainage present. Erythema remains most intense about the dorsum of the foot, and does still extend into the lower leg. Erythema in lower leg much improved. Still with some tenderness and warmth to touch. Neurologic: Present: sensory deficit Appearance: Present: appropriate appearance Eye contact: Present: cooperative Assessment/Plan - Problems/Diagnosis (1) Cellulitis Problem: Acute Qualifiers: Site of cellulitis: extremity Site of cellulitis of extremity: lower extremity Laterality: left Qualified Code(s): L03.116 - Cellulitis of left lower limb Narrative: Office cultures reviewed with pt at bedside. Again positive for MRSA, which could be why his infection escalated as quick as it did. Discussed with Dr. Maciel, and advise another 6 weeks of IV ABX. Recommend continuing on vancomycin per cultures, as well as improvement in WBC over the last 24 hours on medication. (2) Failure of outpatient treatment Problem: Acute Narrative: IV ABX as above. (3) Foot ulcer, left Problem: Chronic Qualifiers: Non-pressure ulcer stage: with fat layer exposed Qualified Code(s): L97.522 - Non-pressure chronic ulcer of other part of left foot with fat layer exposed Narrative: Discussed xray and CT results with patient, as well as current infection. Discussed surgical options, including revision of current amputation to remove remaining metatarsal bones, however there is increased chance of developing further ulceration to his foot the further back an amputation is done. Discussed possible BKA, which would require referral to orthopedics. Advised that while a BKA would rid him of the current source of his infection, that surgery also comes with risks and he could develop infection following that surgery as well. He states understanding of this, just wants to visit all of his options. Advise trying IV ABX to see if this will clear his current infection and get ulcerations to heal. If this is unsuccessful, then there are definitely surgical options. If at any time he decides to forego further ABX therapy, referral to orthopedics can be made. He is in agreement with this plan. Will continue IV ABX. Left foot ulcerations dressed with Aquacel Ag, dry gauze, josemanuel, and JEANNE bandage. Will continue with daily dressing changes. I will continue to follow while he remains inpatient. He is scheduled for follow up in the wound center on 09/09/18.
[2018-09-04] MEDS: AMITRIPTYLINE HCL 50 MG TABLET PO SCH (16:46)
[2018-09-04] MEDS: SIMVASTATIN 40 MG TABLET PO SCH (16:46)
[2018-09-04] MEDS: ACETAMINOPHEN 500 MG TABLET PO PRN (16:46)
[2018-09-04] MEDS ORDERED: RIVAROXABAN 20 MG TABLET PO SCH (21:54)
--- NOTE | 2018-09-04 21:55 | PN ---
Subjective - Date and Time Seen Date: 09/04/18 Time: 10:46 Subjective Narrative: Patient symptoms overnight. He did fever though at 39.3 while vancomycin. Tylenol brought his fever down. States his leg is feeling a little better today and the redness and warmth as well as the tightness has improved compared to the previous day. Cultures came back growing out Clarence as well as an enterococcus species, both sensitive to vancomycin. Otherwise his vital signs have been stable without any other acute events overnight. Objective - Review of Systems Generalized/Overall Review: Reports: Fever. Denies: Weakness, Chills EENTM: Reports: No Symptoms Reported Respiratory: Reports: No Symptoms Reported Cardiac: Reports: No Symptoms Reported Abdominal: Reports: No Symptoms Reported Genitourinary Symptoms: Reports: No Symptoms Reported Musculoskeletal Complaints: Reports: Other - Left foot pain Neurological: Reports: No Symptoms Reported Skin: Reports: Change in Color - Left lower extremity up to mid wagner - Vitals Vitals: Last Vital Signs Temp 37.0 C 09/04/18 19:58 Pulse 79 09/04/18 19:58 Resp 16 09/04/18 19:58 BP 101/62 09/04/18 19:58 Pulse Ox 99 09/04/18 19:58 - Abnormal Lab Findings Abnormal Lab Findings: Abnormal Lab Results 09/04/18 Range/Units 10:46 WBC 13.9 H D (4.0-10.5) K/mm3 RBC 3.84 L (4.7-6.0) M/mm3 Hgb 11.8 L (13.5-18.0) gm/dL Hct 35.9 L (42.0-52.0) % RDW 14.8 H (11.5-14.0) % Immature Gran % (Auto) 0.60 H (0.001-0.429) % Immature Gran # (Auto) 0.09 H (0.000-0.0310) K/mm3 Neutrophils % 84.5 H (42-75.0) % Lymphocytes % 8.5 L (20-51) % Neutrophils # 11.8 H (1.3-6.0) K/mm3 Lymphocytes # 1.18 L (1.5-3.5) k/mm3 - Exam Constitutional: Present: Alert, Oriented x3, Cooperative ENT Exam: Present: hearing grossly normal. Absent: nasal congestion, nasal drainage Neck: Present: non-tender, supple Respiratory: Present: lungs clear, normal breath sounds Cardiovascular/Chest: Present: normal peripheral pulses, irregularly irregular. Absent: systolic murmur Abdomen: Present: Normal bowel sounds, soft, nontender /Rectal: Present: Exam deferred Extremity: Present: swelling - Left lower extremity 1+ edema up to mid wagner Skin Exam: Absent: normal color - Redness of left lower extremity up to mid wagner, improving Appearance: Present: appropriate appearance, appropriate insight Eye contact: Present: cooperative, good eye contact Thoughts: Present: normal thought pattern, normal mood /affect Assessment/Plan Plan Narrative: Patient changed to inpatient due to cellulitic infection with concerns of osteomyelitis. Patient's status came back showing both bacterial species that are growing out to be sensitive to vancomycin, will continue. Patient did have a fever today while on vancomycin, blood cultures drawn. Tylenol does bring down his fevers. Patient currently no longer n.p.o., no longer needing fluids. White blood cell count improved from 18.0 down to 13.9. Left shift remained unchanged. Multiple options as far as treatment discussed with patient from prolonged IV antibiotics in outpatient setting versus surgical BKA. Patient states that he would opt for BKA at this time but recommend we wait to see how he responds to the IV vancomycin. If his leg continues to show improvement likely today that I recommend trial of IV antibiotics to see if this will resolve the situation is me and Dr. Duque both do not feel like he has osteomyelitis at this time. Patient has been fighting an infection to his leg for prolonged period of time though it is getting frustrated with the outcome. Explained to him that the surgical option was always available down the road if we were not having success with this current treatment plan. Patient stated understanding of this. Aside from the one elevated temp today his vital signs been stable. Likely discharge home tomorrow with antibiotic therapy from [facility] which is cl oser to home. We will restart his Xarelto today. Nurse will call with any questions or concerns. She is to notify me if he has any more fevers overnight. - Problems/Diagnosis (1) Cellulitis Problem: Acute Qualifiers: Site of cellulitis: extremity Site of cellulitis of extremity: lower extremity Laterality: left Qualified Code(s): L03.116 - Cellulitis of left lower limb (2) Osteomyelitis of foot, left, acute Problem: Suspected (3) Hypertension Problem: Chronic (4) Failure of outpatient treatment Problem: Acute (5) A-fib Problem: Chronic (6) Polyneuropathy Problem: Chronic (7) Hypertension Problem: Acute
[2018-09-04] MEDS ORDERED: ENOXAPARIN SODIUM 40 MG/0.4 ML SYRG SC ONE (22:30)
[2018-09-05] MEDS: traMADol HCL 50 MG TABLET PO PRN (02:22)
[2018-09-05] MEDS: ACETAMINOPHEN 500 MG TABLET PO PRN ×2 (02:22→19:23)
[2018-09-05] MEDS ORDERED: VANCOMYCIN HCL LEVEL XX ONE (04:00)
[2018-09-05] MEDS: DEXTROSE 5% IV SCH ×3 (05:11)
[2018-09-05] MEDS: VANCOMYCIN HCL IV SCH ×3 (05:11)
[2018-09-05] MEDS: WATER IV SCH ×3 (05:11)
[2018-09-05] MEDS: GABAPENTIN 300 MG CAPSULE PO SCH ×2 (07:21→14:27)
[2018-09-05] MEDS ORDERED: RIVAROXABAN 20 MG TABLET PO SCH (09:00)
[2018-09-05] MEDS: FUROSEMIDE 80 MG TABLET PO SCH (09:12)
[2018-09-05] MEDS: ALLOPURINOL 300 MG TABLET PO SCH (09:12)
[2018-09-05] MEDS: ESCITALOPRAM OXALATE 10 MG TAB PO SCH (09:12)
[2018-09-05] MEDS: rOPINIRole HCL 1 MG TABLET PO SCH ×2 (09:13→18:28)
[2018-09-05 11:00] LABS: Hematocrit 34.2 % (42.0-52.0); Mean Cell Volume 94.5 fl (78-100); Mean Corpuscular Hemoglobin 30.4 pg (27-31); Mean Corpuscular Hgb Conc 32.2 g/dl (32-36); Mean Platelet Volume 9.5 fl (8-11.3); Neutrophil % 82.4 % (42-75.0); Platelet Count 263 K/mm3 (150-450); Red Blood Count 3.62 M/mm3 (4.7-6.0); Red Cell Distribution Width 15.1 % (11.5-14.0); White Blood Count 10.9 K/mm3 (4.0-10.5)
--- NOTE | 2018-09-05 11:06 | DS ---
(1) Cellulitis Problem: Acute Qualifiers: Site of cellulitis: extremity Site of cellulitis of extremity: lower extremity Laterality: left Qualified Code(s): L03.116 - Cellulitis of left lower limb (2) Osteomyelitis of foot, left, acute Problem: Suspected (3) Hypertension Problem: Chronic (4) Failure of outpatient treatment Problem: Acute (5) A-fib Problem: Chronic (6) Polyneuropathy Problem: Chronic (7) Hypertension Problem: Acute Description of Stay: 60-year-old male presented to the hospital at the podiatry clinic for follow-up of left lower extremity ulcer with cellulitis. Patient has a history of chronic left lower extremity infection, with resultant complete 5 metatarsal head surgical resection in March of this year. Patient states that he had developed a fever and redness in his left lower extremity 2 days prior to follow-up with Dr. Duque his cloth colors examiner. He initially was started on Bactrim but infection worsened and he became febrile and so patient was directly admitted to the hospital for IV antibiotics. Wound cultures came back showing MRSA as well as an enterococcus species, both sensitive to vancomycin. Treatment options were explored and it was agreed upon to try a 6-week IV antibiotic treatment as an outpatient. Surgical options still available if patient fails outpatient therapy. Blood cultures are still pending as patient did spike a fever while on vancomycin (after 1 dose). Will notify patient if blood cultures come back positive. Patient follow-up with PCP in 1 to 2 weeks. noted he also has a follow-up appointment scheduled with his cloth colors examiner at the wound center here at the hospital. No other changes to chronic medications and aside from the fever that he spiked, his vitals were stable. Infection improving on abx therapy despite a low vanc trough that came back day of discharge. Med dose increased to 1.75 g BID for 6 weeks. Procedures Performed: none Results and Findings: Lab Pending Results 09/03/18 15:10: WBC 18.0 H, RBC 4.25 L, Hgb 12.7 L, Hct 39.3 L, MCV 92.5, MCH 29.9, MCHC 32.3, RDW 14.8 H, Plt Count 277, MPV 8.7, Immature Gran % (Auto) 0.60 H, Immature Gran # (Auto) 0.10 H, Neutrophils % 82.2 H, Lymphocytes % 10.9 L, Monocytes % 5.0, Eosinophils % 1.0, Basophils % 0.3, Nucleated RBC % 0.0, Neutrophils # 14.8 H, Lymphocytes # 1.96, Monocytes # 0.9, Eosinophils # 0.2, Absolute Basophils 0.1 09/03/18 15:10: ESR 95 H 09/03/18 15:10: Creatinine 0.76 09/03/18 15:10: Sodium 136, Plasma Sodium 136, Potassium 3.5, Chloride 101, Carbon Dioxide 25.0, Anion Gap 13.5, BUN 9, Creatinine 0.73, Est GFR (Non-Af Amer) 114 D, BUN/Creatinine Ratio 12.3, Random Glucose 82, Calcium 9.0, Calcium Adj for Albumin 9.6, Total Bilirubin 1.0, AST 17, ALT 16 L, Alkaline Phosphatase 84, Total Protein 8.1, Albumin 2.9 L 09/04/18 10:46: WBC 13.9 H D, RBC 3.84 L, Hgb 11.8 L, Hct 35.9 L, MCV 93.5, MCH 30.7, MCHC 32.9, RDW 14.8 H, Plt Count 264, MPV 9.0, Immature Gran % (Auto) 0.60 H, Immature Gran # (Auto) 0.09 H, Neutrophils % 84.5 H, Lymphocytes % 8.5 L, Monocytes % 4.6, Eosinophils % 1.4, Basophils % 0.4, Nucleated RBC % 0.0, Neutrophils # 11.8 H, Lymphocytes # 1.18 L, Monocytes # 0.6, Eosinophils # 0.2, Absolute Basophils 0.1 09/05/18 04:00: Vancomycin Trough 8.2 L Discharge Location: Home Disposition: Home self-care Condition: Stable Discharge Activity: Activity as tolerated Discharge Diet: General/regular food Referrals: Riley Maciel DO [Primary Care Provider] - Two Weeks Additional Patient Instructions (free text): -Please make TCM appointment unless [facility] discharge, or if following up with outside provider. Thank you! Latasha at [facility] [phone]. Prescriptions (Any new or edited meds): Vancomycin HCl [Vancomycin] 1 gm IV Q12H 42 Days #84 vial Vancomycin HCl [Vancomycin] 750 mg IV Q12H 42 Days #84 vial Complete Home Medications List: Complete Home Medication List: Allopurinol [Zyloprim] 300 mg PO DAILY 04/08/18 Amitriptyline HCl [Elavil] 50 mg PO QPM 04/08/18 Escitalopram Oxalate [Lexapro] 10 mg PO DAILY 04/08/18 Ferrous Gluconate 325 mg PO QAM 04/08/18 Simvastatin 40 mg PO QPM 04/08/18 Folic Acid 0.8 mg PO DAILY 04/11/18 Ginkgo Biloba 60 mg PO DAILY 04/11/18 Multivit-Min/Folic/Vit K/Lycop [Men's Multivitamin Tablet] 1 ea PO DAILY 04/11/18 Walk In Bathtub 1 unit MISCELLANEOUS .COMPLEX #1 unit 06/05/18 ropinirole 4 mg tablet 4 mg PO BID #60 tab 06/05/18 methocarbamol 500 mg tablet 1.5 mg PO QPM 07/15/18 biotin PO 07/21/18 furosemide 80 mg tablet 80 mg PO DAILY 07/21/18 nitroglycerin 0.4 mg sublingual tablet 0.4 mg SL Q5M PRN 07/21/18 gabapentin 300 mg capsule 300 mg PO TID #90 cap 08/12/18 rivaroxaban 20 mg tablet 20 mg PO QPM #90 tab 08/20/18 methotrexate sodium 2.5 mg tablet 20 mg PO QWEEK tab 09/01/18 sulfamethoxazole 800 mg-trimethoprim 160 mg tablet 1 tab PO Q8H 10 Days #30 tab 09/02/18 Vancomycin HCl [Vancomycin] 1 gm IV Q12H 42 Days #84 vial 09/05/18 Vancomycin HCl [Vancomycin] 750 mg IV Q12H 42 Days #84 vial 09/05/18
[2018-09-05] MEDS: SIMVASTATIN 40 MG TABLET PO SCH (16:13)
[2018-09-05] MEDS: AMITRIPTYLINE HCL 50 MG TABLET PO SCH (16:13)
[2018-09-05] MEDS ORDERED: WATER IV SCH ×3 (16:30)
[2018-09-05] MEDS ORDERED: DEXTROSE 5% IV SCH ×3 (16:30)
[2018-09-05] MEDS ORDERED: VANCOMYCIN HCL IV SCH ×3 (16:30)
[2018-09-05 18:57] VITALS: BP 129/68
== END 2018-09-05 19:50 | disposition home or self-care (01) | DRG 603 ==
LOC: CCFAL → MS 13:30
PROVIDERS: ADMIT Family Medicine; ATTEND Family Medicine
DX: C85.90 Non-Hodgkin lymphoma, unspecified, unspecified site; L03.116 Cellulitis of left lower limb; B95.62 Methicillin resistant Staphylococcus aureus infection as the cause of diseases classified elsewhere; Z79.01 Long term (current) use of anticoagulants; G62.9 Polyneuropathy, unspecified; M86.172 Other acute osteomyelitis, left ankle and foot; L97.522 Non-pressure chronic ulcer of other part of left foot with fat layer exposed; E78.00 Pure hypercholesterolemia, unspecified; B95.2 Enterococcus as the cause of diseases classified elsewhere; T45.1X5A Adverse effect of antineoplastic and immunosuppressive drugs, initial encounter; I48.91 Unspecified atrial fibrillation; I10 Essential (primary) hypertension; F17.210 Nicotine dependence, cigarettes, uncomplicated
CPT/HCPCS: 36415; 73630; 73700; 80053; 80202; 82565; 85025; 85652; 87040; 87081; 96360; 96361; G0378; G0379

== ENCOUNTER 2018-10-07 06:00 | Inpatient (IN) ==
[~2018-10-07 06:00] MED LIST: TRANEXAMIC ACID 1,000 MG in NORMAL SALINE 100 ML IV PRN; ceFAZolin SODIUM 1 GM VIAL IV PRN
[2018-10-07] MEDS: RINGER'S SOLUTION,LACTATED 1,000 ML IV PRN ×2 (06:50→09:10)
--- NOTE | 2018-10-07 07:29 | ANES ---
Anesthesia Pre Procedure Eval Vitals/Labs: Last Vital Signs Temp 36.7 C 10/07/18 06:25 Pulse 81 10/07/18 06:25 Resp 18 10/07/18 06:25 BP 130/78 10/07/18 06:25 Pulse Ox 98 10/07/18 06:25 HOME MEDICATIONS Amitriptyline HCl [Elavil] 50 mg PO QPM 04/08/18 [Last Taken Unknown] Escitalopram Oxalate [Lexapro] 10 mg PO DAILY 04/08/18 [Last Taken Unknown] Simvastatin 40 mg PO QPM 04/08/18 [Last Taken Unknown] Walk In Bathtub 1 unit MISCELLANEOUS .COMPLEX #1 unit 06/05/18 [Last Taken Unknown] methocarbamol 500 mg tablet 1.5 tab PO QPM 07/15/18 [Last Taken Unknown] biotin PO 07/21/18 [Last Taken Unknown] gabapentin 300 mg capsule 300 mg PO TID #90 cap 08/12/18 [Last Taken Unknown] Folic Acid 1 mg PO DAILY 10/07/18 [Last Taken Unknown] Furosemide [Lasix] 80 mg PO DAILY 10/07/18 [Last Taken Unknown] Leflunomide 10 mg PO DAILY 10/07/18 [Last Taken Unknown] Pantoprazole Sodium 40 mg PO DAILY 10/07/18 [Last Taken Unknown] Potassium Chloride 10 meq PO DAILY 10/07/18 [Last Taken Unknown] Pramipexole Di-HCl [Mirapex ER] 1.5 mg PO QAM 10/07/18 [Last Taken Unknown] Rivaroxaban [Xarelto] 20 mg PO DAILY 10/07/18 [Last Taken Unknown] rOPINIRole HCL [Requip] 4 mg PO TID 10/07/18 [Last Taken Unknown] Allergies/Adverse Reactions: Allergies Allergy/AdvReac Type Severity Reaction Status Date / Time codeine Allergy Severe LOC Verified 09/25/18 10:24 - Planned Procedure Planned Procedure: Left Below Knee Amputation Medication List Reviewed:: Yes Allergies Verified: Yes Medical History (Updated 09/16/18 @ 17:38 by Melinda Duque DPM) Atrial fibrillation (Acute) Hypercholesteremia (Acute) Hypertension (Acute) Polyneuropathy (Chronic) History of recent chemotherapy History of smoking Non-Hodgkin lymphoma Swelling of both lower extremities Tarsal tunnel syndrome, bilateral Coronary artery disease Onset Date: Unknown Obesity Onset Date: Unknown Sick sinus syndrome Onset Date: Unknown Surgical History (Updated 09/09/18 @ 14:41 by Melinda Duque DPM) history of teeth extraction Onset Date: ~1979 Amputated toe of right foot Amputation of little toe History of amputation of left great toe History of amputation of lesser toe of left foot History of ankle surgery Onset Date: Unknown bilateral History of back surgery [id number]. Neck surgery History of bilateral carpal tunnel release Onset Date: ~1998 bilateral History of colonoscopy Onset Date: 07/21/18 2005-normal. 07/21/18 [facility]agan-redundant colon. Recheck 10 yrs. History of heart bypass surgery Onset Date: ~1999 double History of knee replacement Onset Date: Unknown right History of tonsillectomy Onset Date: ~1954 Incision and debridement 04/14/18/Dr. Duque/left foot, with garcia resection of metatarsals, revision of amputation stump LAP-BAND surgery status Onset Date: Unknown Pacemaker Status post atrioventricular amanda ablation Onset Date: Unknown venous port placement Onset Date: Unknown tunneled venous port placement Family History (Last Reviewed 10/07/18 @ 07:20 by Omar Andre CRNA) Father , age 90-gangrene Heart disease Sepsis Mother , age 87-CHF Heart disease Lupus Brother unknown health history Other Parents - Airway/Neck/Teeth Within Normal Limits:: Yes Denture Type: Full upper, Full lower Mallampatti Score: 3 Thyromental (T-M) distance: > 6 cm Mandibulo Hyoid distance: > 3 cm - Respiratory Respiratory Physical: lungs clear Smoking Status: Current every day smoker Discussed smoking cessation including day of surgery: No Sleep Apnea currently treated: No Sleep Apnea by current assessment: No Discussed Risks/Treatment of EDD: No - Cardiovascular Tolerate Activity: Poor Heart Sounds: S1 & S2, Regular - Anesthesia Assessment and Plan ASA Class: PS, IV Anesthesia Type Plan: Spinal
[2018-10-07] MEDS ORDERED: BUPIVACAINE HCL 50 ML VIAL IJ ONE (09:50)
[2018-10-07] MEDS ORDERED: ONDANSETRON HCL/PF 2 MG/ML VIAL IV PRN ×2 (10:27→10:30)
[2018-10-07] MEDS ORDERED: HYDROmorphone HCL 1 MG/ML DISP.SYRIN IV PRN (10:27)
[2018-10-07] MEDS ORDERED: PROCHLORPERAZINE EDISYLATE 5 MG/ML VIAL IV PRN (10:27)
[2018-10-07] MEDS ORDERED: diphenhydrAMINE HCL 50 MG/ML VIAL IV PRN ×2 (10:27→10:30)
[2018-10-07] MEDS ORDERED: NALOXONE HCL 0.4 MG/ML VIAL IV PRN (10:27)
[2018-10-07] MEDS ORDERED: ACETAMINOPHEN 500 MG TABLET PO PRN (10:30)
[2018-10-07] MEDS ORDERED: MAGNESIUM HYDROXIDE 30 ML UDC PO PRN (10:30)
[2018-10-07] MEDS ORDERED: MORPHINE SULFATE 2 MG/ML DISP.SYRIN IV PRN (10:30)
[2018-10-07] MEDS ORDERED: oxyCODONE HCL/ACETAMINOPHEN 1 TAB TABLET PO PRN (10:30)
[2018-10-07] MEDS ORDERED: MAG HYDROX/ALUMINUM HYD/SIMETH 30 ML UDC PO PRN (10:30)
--- NOTE | 2018-10-07 10:46 | OR ---
Operative Report - Dictated Report Narrative: Date: 10/07/2018 Surgeon: Ankush Clark M.D. [employer] Dean: Vincent Bray PA-C provided a set of essential, skilled, educated hands that assisted in positioning, transfer, retraction, manipulation, irrigation, closure of wounds, and placement of dressings all of which could not be provided by the available surgical crew. Anesthesia: General plus local Preoperative diagnosis: Left foot osteomyelitis, chronic nonhealing diabetic foot ulcer Postoperative diagnosis: Left foot osteomyelitis, chronic nonhealing diabetic foot ulcer Procedure: Left below-knee amputation Estimated blood loss: None Tourniquet time: 22 Minutes at 300 millimeters mercury Specimens: Lower leg and foot for disposal Drain: Hemovac x1 Complications: None Indications: Carson is a 68-year-old male with diabetes who has a history of left transmetatarsal amputation and has now developed a non-healing ulcer of his amputation stump and underlying osteomyelitis. He has been on antibiotic suppression with IV vancomycin. Given his chronic nonhealing wound and poor distal vascularity, I recommended below knee amputation as a definitive treatment that would give him good function with a prosthesis. I discussed the risks of surgery with the patient including, but not limited to, persistent infection, wound complications, need for higher level amputation, phantom limb pain, and risks with anesthesia. Procedure: After a timeout, general anesthetic was induced without complication and antibiotic consisting of 2 g of Ancef was administered. A sandbag bump was placed under the operative hip and the operative leg was placed on a bone foam ramp. A well-padded tourniquet was applied to the operative thigh. The operative extremity was then prepped and draped in usual sterile fashion. The operative leg was exsanguinated with an Esmarch bandage and the tourniquet was inflated to 300 mmHg. Attention was turned to marking out our soft tissue flaps. A leila for anterior flap was made approximately 10 cm distal to the tibial tubercle. The anterior flap was marked out to an include two thirds of the total circumference and a longer posterior flap was marked out encompassing roughly one third of the overall circumference. This was incised circumferentially with a sharp knife down to the level of the fascia. The fascia was incised and sharp dissection was carried out through the anterior compartment. The superficial and deep peroneal nerves were identified, injected with 1% marcaine, and sharply divided with a knife under mild tension. The anterior tibial vessels were identified and ligated with a silk tie. The periosteum was elevated off the tibia and we made a leila for bone cuts partially to have several meters proximal to our skin flap. The tibia was stripped of soft tissue circumferentially and 2 blunt Homans were placed. The tibial cut was then made with an oscillating saw. The anterior aspect was then beveled and the edges were smoothed. The fibula was then identified and stripped of its soft tissue circumferentially. Protecting the underlying soft tissues, the fibula was transected with an oscillating saw approximately 1 cm proximal to the level of our tibial cut. We then turned our attention to the posterior musculature. Sharp dissection with a knife was carried out through the musculature in a beveled fashion. The tibial nerve was identified, injected with 1% marcaine, and sharply transected with a knife under mild tension. The posterior tibial vessels were identified and ligated with silk ties. At this point the tourniquet was let down and hemostasis was obtained with a combination of direct pressure and electrocautery. Any remaining bleeding vessels were ligated with silk ties. There was minimal remaining bleeding and it was felt that a drain was not necessary. The wound was then copiously irrigated with normal saline. A submuscular hemovac drain was placed in the wound. A 2.0 mm drill bit was used to drill 4 holes through the anteromedial aspect of the tibia. A #2 FiberWire was used to myodese the gastrocnemius and soleus fascia to the tibia creating a muscular pad underneath the cut end of the tibia. The remainder of the anterior and posterior fascia was brought together with #0 running barbed suture. The skin flaps were then sewn together in a layered fashion with 3-0 Vicryl in an interrupted deep dermal fashion followed by jose. The incision was then dressed with Xeroform, 4 x 4's, ABD, soft roll, and an JEANNE wrap. Patient was then awoken and transferred to postanesthesia care in stable condition. All sponge, sharp, and instrument counts were correct prior to closing the wounds.
[2018-10-07] MEDS: ROPINIROLE HCL 4 MG PO SCH ×2 (12:04→17:13)
[2018-10-07] MEDS: GABAPENTIN 300 MG CAPSULE PO SCH ×2 (12:06→17:12)
--- NOTE | 2018-10-07 13:50 | ANES ---
Post Anesthesia Assessment - Vital Signs Vitals: Last Vital Signs Temp 36.3 C 10/07/18 12:24 Pulse 80 10/07/18 12:24 Resp 16 10/07/18 12:24 BP 153/94 H 10/07/18 12:24 Pulse Ox 97 10/07/18 12:24 Airway Patency: Normal - Mental Status Level Of Consciousness: Awake - Pain Level Pain Score: 0 - N/V Assessment Nausea/Vomiting Presence: None Dehydration:: No
[2018-10-07] MEDS: ceFAZolin SODIUM 2 GM in DEXTROSE 5 % IN WATER 100 ML IV SCH ×4 (15:01→20:50)
[2018-10-07] MEDS: NORMAL SALINE 1,000 ML IV PRN (15:02)
[2018-10-07] MEDS: AMITRIPTYLINE HCL 50 MG TABLET PO SCH (17:12)
[2018-10-07] MEDS: METHOCARBAMOL 500 MG TABLET PO SCH (17:12)
[2018-10-07] MEDS: SIMVASTATIN 40 MG TABLET PO SCH (17:13)
[2018-10-07] MEDS: oxyCODONE HCL/ACETAMINOPHEN 1 TAB TABLET PO PRN ×2 (18:53→23:06)
[2018-10-07] MEDS: SENNOSIDES/DOCUSATE SODIUM 1 TAB TABLET PO SCH (20:50)
[2018-10-08] MEDS: NORMAL SALINE 1,000 ML IV PRN (00:13)
[2018-10-08] MEDS: ceFAZolin SODIUM 2 GM in DEXTROSE 5 % IN WATER 100 ML IV SCH ×2 (01:32)
[2018-10-08] MEDS: oxyCODONE HCL/ACETAMINOPHEN 1 TAB TABLET PO PRN ×5 (04:07→22:51)
[2018-10-08 05:43] LABS: Hematocrit 32.3 % (42.0-52.0); Hemoglobin 10.1 gm/dL (13.5-18.0); Mean Cell Volume 94.2 fl (78-100); Mean Corpuscular Hemoglobin 29.4 pg (27-31); Mean Corpuscular Hgb Conc 31.3 g/dl (32-36); Mean Platelet Volume 8.5 fl (8-11.3); Platelet Count 300 K/mm3 (150-450); Red Blood Count 3.43 M/mm3 (4.7-6.0); Red Cell Distribution Width 14.9 % (11.5-14.0); White Blood Count 8.9 K/mm3 (4.0-10.5)
[2018-10-08 05:50] LABS: BUN/Creatinine Ratio 12.1 (9.0-21.6); Calcium * 8.4 mg/dL (7.9-10.9); Carbon Dioxide 28.2 mmol/L (24-32.6); Estimated Creat Clear 71.4; Potassium 3.2 mmol/L (3.4-4.6)
[2018-10-08] MEDS: PANTOPRAZOLE SODIUM 40 MG TABLET.EC PO SCH (06:33)
[2018-10-08] MEDS ORDERED: POTASSIUM CHLORIDE 10 MEQ TABLET.SA PO SCH (09:00)
[2018-10-08] MEDS: RIVAROXABAN 20 MG TABLET PO SCH (09:08)
[2018-10-08] MEDS: ESCITALOPRAM OXALATE 10 MG TAB PO SCH (09:08)
[2018-10-08] MEDS: FUROSEMIDE 80 MG TABLET PO SCH (09:08)
[2018-10-08] MEDS: ROPINIROLE HCL 4 MG PO SCH ×3 (09:09→16:29)
[2018-10-08] MEDS: FOLIC ACID 1 MG TABLET PO SCH (09:09)
[2018-10-08] MEDS: GABAPENTIN 300 MG CAPSULE PO SCH ×3 (09:09→16:29)
[2018-10-08] MEDS: Leflunomide 10 MG PO SCH (09:09)
[2018-10-08] MEDS: PRAMIPEXOLE DI HCL 1.5 MG PO SCH (09:10)
--- NOTE | 2018-10-08 14:01 | PN ---
Subjective - Date and Time Seen Date: 10/08/18 Time: 07:50 Subjective Narrative: Patient is sitting comfortably in the bed. Patient reports no acute events overnight. Patient states his pain is well controlled at this time. Patient states he has been up using a walker for a few steps around the room with assistance. Patient notes no other acute complaints. Patient does note that he has had mild aching of his left ankle, appearing to be phantom pain at this time . Objective - Vitals Vitals: Last Vital Signs Temp 36.1 C 10/08/18 07:08 Pulse 80 10/08/18 09:08 Resp 18 10/08/18 07:08 BP 131/80 10/08/18 09:08 Pulse Ox 94 10/08/18 07:08 - Abnormal Lab Findings Abnormal Lab Findings: Abnormal Lab Results 10/08/18 10/08/18 Range/Units 05:26 05:26 RBC 3.43 L (4.7-6.0) M/mm3 Hgb 10.1 L (13.5-18.0) gm/dL Hct 32.3 L (42.0-52.0) % MCHC 31.3 L (32-36) g/dl RDW 14.9 H (11.5-14.0) % Potassium 3.2 L (3.4-4.6) mmol/L - Exam Constitutional: Present: Alert, Cooperative, No distress Respiratory: Present: no respiratory distress Extremity: Present: other - LLE--> bandages clean dry and intact, amputation below the knee, sensation sensation intact light touch, able to actively flex/extend stump, minimal extension lag at this time, diffuse mild tenderness about stump Appearance: Present: appropriate appearance Eye contact: Present: cooperative Thoughts: Present: normal thought pattern Assessment/Plan Plan Narrative: -68 y/o male postop day 1 status post below-knee amputation of his left lower extremity -Nonweightbearing left lower extremity, use of crutches/walker and other assistive devices for ambulation -Remain with postoperative dressings in place -PT/OT to work on use of assistive devices for ambulation -P.o. diet as tolerated -P.o. pain medication PRN -Hemoglobin 10.1, continue to monitor -Disposition: Plan to continue to aid patient in ability to ambulate without need for assistance. Patient will continue to be monitored for postoperative complications, pain control, return to p.o. diet, PT/OT for ambulation. Once all goals are met patient will be discharged, plan to discharge home due to significant set up, evaluation will be performed for any assisting devices that are needed. - Problems/Diagnosis (1) Status post below knee amputation of left lower extremity Problem: Acute
[2018-10-08] MEDS: METHOCARBAMOL 500 MG TABLET PO SCH (16:29)
[2018-10-08] MEDS: SIMVASTATIN 40 MG TABLET PO SCH (16:30)
[2018-10-08] MEDS: AMITRIPTYLINE HCL 50 MG TABLET PO SCH (16:30)
[2018-10-08] MEDS: SENNOSIDES/DOCUSATE SODIUM 1 TAB TABLET PO SCH (20:52)
[2018-10-09] MEDS: oxyCODONE HCL/ACETAMINOPHEN 1 TAB TABLET PO PRN ×2 (04:25→13:42)
[2018-10-09 06:15] LABS: Anion Gap 9.8 mmol/L (6.8-13.8); BUN/Creatinine Ratio 16.5 (9.0-21.6); Calcium * 8.8 mg/dL (7.9-10.9); Carbon Dioxide 34.2 mmol/L (24-32.6); Estimated Creat Clear 77.7
[2018-10-09] MEDS: PANTOPRAZOLE SODIUM 40 MG TABLET.EC PO SCH (06:40)
[2018-10-09 06:44] LABS: Hematocrit 32.9 % (42.0-52.0); Hemoglobin 10.7 gm/dL (13.5-18.0); Mean Cell Volume 91.1 fl (78-100); Mean Corpuscular Hemoglobin 29.6 pg (27-31); Mean Corpuscular Hgb Conc 32.5 g/dl (32-36); Mean Platelet Volume 8.7 fl (8-11.3); Platelet Count 344 K/mm3 (150-450); Red Blood Count 3.61 M/mm3 (4.7-6.0); Red Cell Distribution Width 14.6 % (11.5-14.0); White Blood Count 9.4 K/mm3 (4.0-10.5)
[2018-10-09] MEDS ORDERED: POTASSIUM CHLORIDE 20 MEQ TABLET.SA PO SCH (09:00)
[2018-10-09] MEDS: RIVAROXABAN 20 MG TABLET PO SCH (09:18)
[2018-10-09] MEDS: GABAPENTIN 300 MG CAPSULE PO SCH ×2 (09:18→13:43)
[2018-10-09] MEDS: FUROSEMIDE 80 MG TABLET PO SCH (09:18)
[2018-10-09] MEDS: FOLIC ACID 1 MG TABLET PO SCH (09:18)
[2018-10-09] MEDS: ROPINIROLE HCL 4 MG PO SCH ×2 (09:18→13:43)
[2018-10-09] MEDS: ESCITALOPRAM OXALATE 10 MG TAB PO SCH (09:18)
[2018-10-09] MEDS: Leflunomide 10 MG PO SCH (09:20)
[2018-10-09] MEDS: PRAMIPEXOLE DI HCL 1.5 MG PO SCH (09:20)
--- NOTE | 2018-10-09 09:34 | DS ---
(1) Status post below knee amputation of left lower extremity Problem: Acute (2) Hypokalemia Problem: Acute Description of Stay: Patient is a 68-year-old male who was admitted status post a left below-knee amputation. Patient's surgery was uncomplicated. His postoperative stay has been uncomplicated to this point. Patient's pain is well controlled with p.o. pain medication. Patient has been up ambulating using a walker with PT/OT. Due to patient's left below-knee amputation he will require the use of a walker for all activities of daily living. Patient will benefit from the use of a walker to be able to ambulate around his house and for other activities of daily l iving. There is a significant need for patient to have a walker to be able to ambulate. This will be used until patient has been fitted for a prosthetic on his left lower extremity. Patient has expressed a willingness to use a walker for ambulation. Patient's house is set up with a ramp and no significant stairs so successful for walker usage. Patient's dressing will be changed prior to discharge. He will follow-up at 10 days postoperatively in the orthopedic outpatient clinic for a wound check, then follow-up at 3 weeks postoperative leave for staple removal and postoperative care. Patient can call orthopedic outpatient clinic with any acute questions or concerns. Plan is to discharge home. Patient also has returned to a p.o. diet without significant complication. Carson Brunner is confined to his home due to recent surgery for a left below-knee amputation. The need for fpc due to patient's significant wound management including monitoring for complications. Dressings need to be changed with dry gauze and Tubigrip applied over the top every 2 to 3 days or if any significant drainage appears on dressing. If significant erythema, purulent drainage, concern for infection arise need to call orthopedic outpatient clinic for further instructions. Patient will need physical therapy for aid in ambulating using a walker about his house. Physical therapy will also aid in working on knee range of motion with focus on knee extension. There also be a generalized work on lower extremity strength and continued mobility. The need for home health care and skilled services directly related to the time spent [id number] with this person. Note patient did have a slight drop in his potassium, patient was given 40 mEq p.o., patient can follow-up with his PCP, encouraged to eat a high potassium diet at home. Procedures Performed: see notes below List Procedures: Left below-knee amputation Results and Findings: Lab Pending Results 10/08/18 05:26: WBC 8.9, RBC 3.43 L, Hgb 10.1 L, Hct 32.3 L, MCV 94.2, MCH 29.4, MCHC 31.3 L, RDW 14.9 H, Plt Count 300, MPV 8.5 10/08/18 05:26: Sodium 139, Plasma Sodium 139, Potassium 3.2 L, Chloride 103, Carbon Dioxide 28.2, Anion Gap 11.0, BUN 12, Creatinine 0.99, Est GFR (Non-Af Amer) 80 D, BUN/Creatinine Ratio 12.1, Random Glucose 104, Calcium 8.4 10/09/18 05:50: WBC 9.4, RBC 3.61 L, Hgb 10.7 L, Hct 32.9 L, MCV 91.1, MCH 29.6, MCHC 32.5, RDW 14.6 H, Plt Count 344, MPV 8.7 10/09/18 05:50: Sodium 139, Plasma Sodium 139, Potassium 3.0 L, Chloride 98, Carbon Dioxide 34.2 H, Anion Gap 9.8, BUN 15, Creatinine 0.91, Est GFR (Non-Af Amer) 88, BUN/Creatinine Ratio 16.5, Random Glucose 91, Calcium 8.8 Discharge Location: Home Disposition: Home Health Service Home Health Agency: Other - [facility] Condition: Good Face to Face Encounter completed per [facility] Guidelines: Yes Discharge Activity: Activity as tolerated, Non-Weight bearing - LLE Discharge Diet: General/regular food Referrals: Riley Maciel DO [Primary Care Provider] - Problem Oriented Discharge Instructions to Patient/Family: Stump and Prosthesis Care Print Language (Kyrgyz or Georgian Available): Kyrgyz Additional Patient Instructions (free text): [facility]. Please fax orders, facesheet, H&P and DC summary to [phone]. Follow up in the office with Dr. Clark schedule on 10/20/18 at 1:45pm. Prescriptions (Any new or edited meds): Walker [Thad Altamirano] 1 ea MC ONCE #1 ea Complete Home Medications List: Complete Home Medication List: Amitriptyline HCl [Elavil] 50 mg PO QPM 01/22/19 Escitalopram Oxalate [Lexapro] 10 mg PO DAILY 04/08/18 Simvastatin 40 mg PO QPM 04/08/18 Walk In Bathtub 1 unit MISCELLANEOUS .COMPLEX #1 unit 06/05/18 methocarbamol 500 mg tablet 1.5 tab PO QPM 07/15/18 gabapentin 300 mg capsule 300 mg PO TID #90 cap 08/12/18 Folic Acid 1 mg PO DAILY 10/07/18 Furosemide [Lasix] 80 mg PO DAILY 10/07/18 Leflunomide 10 mg PO DAILY 10/07/18 Methotrexate Sodium [Methotrexate] 20 mg PO MO 10/07/18 Pantoprazole Sodium 40 mg PO DAILY 10/07/18 Potassium Chloride 10 meq PO DAILY 10/07/18 Pramipexole Di-HCl [Mirapex ER] 1.5 mg PO QAM 10/07/18 Rivaroxaban [Xarelto] 20 mg PO DAILY 10/07/18 ropinirole 4 mg tablet 4 mg PO TID #90 tab 10/07/18 Adarsh [Thad Altamirano] 1 ea MC ONCE #1 ea 10/09/18 oxyCODONE HCL/ACETAMINOPHEN [Percocet 5 MG/325 MG] 1 - 2 tab PO Q4H PRN #90 tab 10/09/18
[2018-10-09 15:13] VITALS: BP 108/65
[2018-10-13] MEDS ORDERED: METHOTREXATE SODIUM 2.5 MG TABLET PO SCH (09:00)
== END 2018-10-09 15:15 | disposition home health service (06) | DRG 475 ==
LOC: MS 06:00
PROVIDERS: ADMIT Orthopaedic Surgery; ATTEND Orthopaedic Surgery
DX: M86.672 Other chronic osteomyelitis, left ankle and foot; E11.621 Type 2 diabetes mellitus with foot ulcer; C85.90 Non-Hodgkin lymphoma, unspecified, unspecified site; I48.2 Chronic atrial fibrillation; I25.10 Atherosclerotic heart disease of native coronary artery without angina pectoris; B95.62 Methicillin resistant Staphylococcus aureus infection as the cause of diseases classified elsewhere; I10 Essential (primary) hypertension; M86.172 Other acute osteomyelitis, left ankle and foot; Z87.891 Personal history of nicotine dependence; Z79.4 Long term (current) use of insulin; E11.42 Type 2 diabetes mellitus with diabetic polyneuropathy; L97.526 Non-pressure chronic ulcer of other part of left foot with bone involvement without evidence of necrosis; E87.6 Hypokalemia
CPT/HCPCS: 36415; 80048; 85027; 87081; 88307; 88311; 97110; 97116; 97161; 97165; 97535